=== PATIENT | female | born 1950 | race Caucasian/White ===

== ENCOUNTER 2019-08-25 02:52 | Emergency (ER) | payer MEDICARE, BC ==
[~2019-08-25] VITALS: Ht 165.1 cm; Wt 68.0 kg
[2019-08-25 02:52] VITALS: BP 170/92
[~2019-08-25 02:52] MED LIST: ASPI81TA5 PO; ATEN50TA PO
--- NOTE | 2019-08-25 03:05 | NUR ---
SEEN AND EXAMINED BY DR. DAS
--- NOTE | 2019-08-25 03:12 | NUR ---
DR. DAS AT BEDSIDE FOR LACERATION AND DRAINAGE
[2019-08-25] MEDS ORDERED: SULFAMETH/TRIMETH 800/160 MG 1 UDTAB TABLET ONE (03:25)
[2019-08-25] MEDS ORDERED: SULFAMETH/TRIMETH 800/160 MG 1 UDTAB TABLET PO ONE (03:30)
== END 2019-08-25 03:33 | disposition home or self-care (01) ==
LOC: ER 02:57
DX: L02.511 Cutaneous abscess of right hand (principal); I10 Essential (primary) hypertension; Z60.2 Problems related to living alone; Z79.82 Long term (current) use of aspirin; Z79.899 Other long term (current) drug therapy

== ENCOUNTER 2021-12-02 03:35 | Emergency (ER) | payer MEDICARE, BC ==
[~2021-12-02] VITALS: Ht 165.1 cm; Wt 63.5 kg
--- NOTE | 2021-12-02 04:16 | NUR ---
URINE COLLECTED AND SENT TO LAB
--- NOTE | 2021-12-02 04:16 | NUR ---
PT BIBS C/O LLQ PAIN X3 DAYS. PATIENT ALERT AND ORIENTED X3. AMBULATORY WITH NON LABORED BREATHING IN BED 10 AWAITING MD SÁNCHEZ.
[2021-12-02] MEDS ORDERED: MORPHINE SULFATE INJ 2 MG/ML DISP.SYRIN IV ONE (04:30)
[2021-12-02] MEDS ORDERED: IV NS 0.9% 500 ML BAG IV ONE (04:30)
[2021-12-02] MEDS ORDERED: ONDANSETRON HCL/PF 4 MG/2 ML VIAL IVP ONE (04:30)
--- NOTE | 2021-12-02 04:30 | NUR ---
RAC #20G S/L; PATENT AND INTACT. BLOOD COLLECTED AND GIVEN TO LAB
[2021-12-02 04:47] LABS: BASOPHILS # (AUTO) 0.1 K/uL (0.0-0.2); BASOPHILS % (AUTO) 0.5 % (0.0-2.0); EOSINOPHILS % (AUTO) 0.3 % (0.0-6.0); HEMATOCRIT 45 % (33-45); HEMOGLOBIN 14.7 g/dL (11.5-14.8); LYMPHOCYTES # (AUTO) 1.7 K/uL (0.8-4.8); LYMPHOCYTES % (AUTO) 15.2 % (20.0-44.0); MEAN CORPUSCULAR HGB CONC 32 g/dl (31.0-36.0); MEAN CORPUSCULAR VOLUME 82 fL (82-100); MONOCYTES # (AUTO) 0.6 K/uL (0.1-1.30); NEUTROPHILS # (AUTO) 8.8 K/uL (1.8-8.9); PLATELET COUNT (AUTO) 348 K/uL (150-450); RED BLOOD CELL COUNT(AUTO) 5.52 MIL/uL (4.0-5.2); WHITE BLOOD COUNT (AUTO) 11.1 K/uL (4.3-11.0)
[2021-12-02 04:50] LABS: BILIRUBIN,URINE MODERATE (NEGATIVE); LEUKOCYTE ESTERASE ,URINE NEGATIVE (NEGATIVE); NITRITE, URINE NEGATIVE (NEGATIVE); PH,URINE 5.5 (5.0-8.0); PROTEIN,URINE TRACE mg/dl (NEGATIVE); UGLUCOSE NEGATIVE (NEGATIVE)
--- NOTE | 2021-12-02 04:50 | NUR ---
PT TAKEN TO CT VIA TAYL[facility]
[2021-12-02 04:51] LABS: COLOR,URINE DARK YELLOW (YELLOW)
[2021-12-02 05:07] LABS: CALCIUM, SERUM 10.2 mg/dL (8.5-10.1); CARBON DIOXIDE 24 mmol/L (21-32); CHLORIDE 100 mmol/L (98-107); CREATININE 0.8 mg/dL (0.6-1.3); GLUCOSE 119 mg/dL (74-106); POTASSIUM 3.7 mmol/L (3.5-5.1); SODIUM SERUM 135 mmol/L (136-145); UREA NITROGEN, BLOOD 13 mg/dL (7-18)
[2021-12-02 05:13] LABS: ALANINE AMINOTRANSFERASE 19 U/L (12-78); ALKALINE PHOSPHATASE 106 U/L (46-116); ASPARTATE AMINOTRANSFERASE 14 U/L (15-37); BILIRUBIN,DIRECT 0.2 mg/dL (0.0-0.2); BILIRUBIN,TOTAL 0.7 mg/dL (0.2-1.0); LIPASE 113 U/L (73-393); TOTAL PROTEIN, SERUM 7.5 g/dL (6.4-8.2)
[2021-12-02] MEDS ORDERED: CIPR-262 PO (06:09)
[2021-12-02] MEDS ORDERED: METR500T PO (06:09)
[2021-12-02] MEDS ORDERED: METRONIDAZOLE 500 MG TABLET ONE (06:14)
[2021-12-02] MEDS ORDERED: CIPROFLOXACIN HCL 500 MG TABLET ONE (06:14)
[2021-12-02] MEDS ORDERED: METRONIDAZOLE 500 MG TABLET PO ONE (06:30)
[2021-12-02] MEDS ORDERED: CIPROFLOXACIN HCL 500 MG TABLET PO ONE (06:30)
--- NOTE | 2021-12-02 06:31 | NUR ---
Patient discharged to home in stable condition. rx Written and verbal after care instructions given. Patient verbalizes understanding of instruction. pt ambulatory with a steady gait
[2021-12-02 06:33] VITALS: BP 169/89
[2021-12-02 08:01] LABS: BACTERIA,URINE None seen /HPF (None Seen); MUCUS,URINE Moderate /LPF (None Seen); SQUAMOUS EPITHELIAL CELL,UR Few /HPF (None Seen); WBC,URINE 0-3 /HPF (0-3)
== END 2021-12-02 06:35 | disposition home or self-care (01) ==
LOC: ER 03:41
DX: K52.9 Noninfective gastroenteritis and colitis, unspecified (principal); I10 Essential (primary) hypertension; Z60.2 Problems related to living alone; Z79.899 Other long term (current) drug therapy; Z79.82 Long term (current) use of aspirin
CPT/HCPCS: 36415; 71045-TC; 80048-TC; 80076-TC; 81001; 83690-TC; 84484-TC; 85025-TC; 85730-TC

== ENCOUNTER 2023-04-11 17:49 | Inpatient (IN) | payer MEDICARE, BC ==
[~2023-04-11] VITALS: Ht 167.6 cm; Wt 71.7 kg
[~2023-04-11 17:49] MED LIST changes: +CIPR-262 PO; +DOCU-141 PO; +METR500T PO
[2023-04-11 19:56] LABS: BASOPHILS # (AUTO) 0.1 K/uL (0.0-0.2); BASOPHILS % (AUTO) 0.7 % (0.0-2.0); EOSINOPHILS % (AUTO) 0.4 % (0.0-6.0); HEMATOCRIT 43 % (33-45); LYMPHOCYTES # (AUTO) 2.4 K/uL (0.8-4.8); LYMPHOCYTES % (AUTO) 23.3 % (20.0-44.0); MEAN CORPUSCULAR HEMOGLOBIN 27 PG (26.0-33.0); MEAN CORPUSCULAR HGB CONC 33 g/dl (31.0-36.0); MEAN CORPUSCULAR VOLUME 82 fL (82-100); MONOCYTES # (AUTO) 0.8 K/uL (0.1-1.30); MONOCYTES % (AUTO) 8.1 % (2.0-12.0); NEUTROPHILS % (AUTO) 67.5 % (43.0-81.0); PLATELET COUNT (AUTO) 336 K/uL (150-450); RED BLOOD CELL COUNT(AUTO) 5.21 MIL/uL (4.0-5.2); RED CELL DISTRIBUTION WIDTH 14.6 % (11.5-15.0); WHITE BLOOD COUNT (AUTO) 10.3 K/uL (4.3-11.0)
[2023-04-11 20:22] LABS: APPEARANCE,URINE CLEAR (CLEAR); BILIRUBIN,URINE NEGATIVE (NEGATIVE); BLOOD, URINE NEGATIVE Ery/uL (NEGATIVE); COLOR,URINE YELLOW (YELLOW); KETONES,URINE 1+ mg/dL (NEGATIVE); LEUKOCYTE ESTERASE ,URINE NEGATIVE (NEGATIVE); NITRITE, URINE NEGATIVE (NEGATIVE); PROTEIN,URINE NEGATIVE (NEGATIVE); UGLUCOSE NEGATIVE (NEGATIVE); UROBILINOGEN,URINE 0.2 EU/dL (0.2)
[2023-04-11 20:25] LABS: CALCIUM, SERUM 9.9 mg/dL (8.5-10.1); CARBON DIOXIDE 23 mmol/L (21-32); CHLORIDE 104 mmol/L (98-107); CREATININE 0.8 mg/dL (0.6-1.3); GLUCOSE 111 mg/dL (74-106); POTASSIUM 3.8 mmol/L (3.5-5.1); SODIUM SERUM 140 mmol/L (136-145); UREA NITROGEN, BLOOD 9 mg/dL (7-18)
[2023-04-11 20:31] LABS: ALANINE AMINOTRANSFERASE 26 U/L (12-78); ALBUMIN 4.3 g/dL (3.4-5.0); ALKALINE PHOSPHATASE 84 U/L (46-116); ASPARTATE AMINOTRANSFERASE 14 U/L (15-37); BILIRUBIN,DIRECT 0.2 mg/dL (0.0-0.2); BILIRUBIN,TOTAL 0.7 mg/dL (0.2-1.0); TOTAL PROTEIN, SERUM 7.1 g/dL (6.4-8.2)
[2023-04-11 20:32] LABS: ACETAMINOPHEN <10 ug/ml (10-30); ALCOHOL, BLOOD < 3 mg/dL (0-10); SALICYLATE < 2.3 mg/dL (2.8-20.0)
[2023-04-11 20:36] LABS: AMPHETAMINE, URINE NEGATIVE (NEGATIVE); BARBITURATE, URINE NEGATIVE (NEGATIVE); CANNABINOID, URINE NEGATIVE (NEGATIVE); COCCAINE, URINE NEGATIVE (NEGATIVE); OPIATE, URINE NEGATIVE (NEGATIVE); PHENCYCLIDINE SCREEN,URINE NEGATIVE (NEGATIVE)
[2023-04-11 20:37] LABS: BENZODIAZEPINE, URINE POSITIVE (NEGATIVE)
[2023-04-11] MEDS ORDERED: OLANZAPINE 5 MG TABLET PO ONE (23:00)
[2023-04-11] MEDS ORDERED: OLANZAPINE 5 MG TABLET ONE (23:08)
[2023-04-12 01:10] VITALS: BP 153/86; TEMP 97.7; O2SAT 97
[2023-04-12] MEDS ORDERED: ZOLPIDEM TARTRATE 5 MG TABLET PO PRN (01:30)
[2023-04-12] MEDS ORDERED: LORAZEPAM 0.5 MG TABLET PO PRN (01:30)
[2023-04-12] MEDS ORDERED: BLOOD SUGAR DIAGNOSTIC 1 EACH STRIP IN ONE (01:30)
[2023-04-12 07:21] LABS: CREATININE 0.7 mg/dL (0.6-1.3)
[2023-04-12 07:28] LABS: CHOLESTEROL 122 mg/dL (<200); HDL CHOLESTEROL 61 mg/dL (40-60); LDL 45 mg/dL (0-99); TRIGLYCERIDES 53 mg/dL (30-150)
[2023-04-12 08:00] VITALS: BP 144/72; TEMP 97.8; O2SAT 98
[2023-04-12] MEDS: ATENOLOL 50 MG TABLET PO SCH (08:12)
[2023-04-12] MEDS: ASPIRIN EC 81 MG TABLET.DR PO SCH (08:12)
[2023-04-12] MEDS ORDERED: ALPR0.5T8 PO (10:16)
[2023-04-12] MEDS ORDERED: ESCI5TAB PO (10:16)
[2023-04-12] MEDS ORDERED: POLY17PO4 PO (10:16)
[2023-04-12] MEDS ORDERED: LISI-768 PO (10:16)
[2023-04-12] MEDS ORDERED: CHOL100043 PO (10:16)
[2023-04-12] MEDS ORDERED: ATOR10TA PO (10:16)
[2023-04-12] MEDS ORDERED: TEMAZEPAM 7.5 MG CAPSULE PO PRN (11:00)
[2023-04-12] MEDS: ESCITALOPRAM OXALATE (10 MG) 10 MG TABLET PO SCH (12:12)
[2023-04-12] MEDS: LISINOPRIL (5MG) 5 MG TABLET PO SCH (12:13)
[2023-04-12] MEDS: ATORVASTATIN 10 MG TABLET PO SCH (12:13)
[2023-04-12] MEDS: MAGNESIUM HYDROXIDE 30 ML UDC PO PRN (14:26)
[2023-04-12] MEDS: DOCUSATE SODIUM 100 MG CAPSULE PO PRN (15:33)
[2023-04-12 16:00] VITALS: BP 152/76; TEMP 97.8; O2SAT 98
[2023-04-12] MEDS: hydrOXYzine PAMOATE 25 MG CAPSULE PO PRN (16:35)
[2023-04-12] MEDS: ACETAMINOPHEN 325 MG TABLET PO PRN (18:38)
[2023-04-12 20:56] VITALS: BP 144/49; TEMP 97.6; O2SAT 97
[2023-04-12] MEDS: QUETIAPINE FUMARATE 100 MG TABLET PO SCH (21:58)
[2023-04-13] MEDS: hydrOXYzine PAMOATE 25 MG CAPSULE PO PRN (01:00)
[2023-04-13 08:00] VITALS: BP 158/78; TEMP 97.8; O2SAT 98
[2023-04-13] MEDS: POLYETHYLENE GLYCOL 3350 17 GM POWD.PACK PO SCH ×2 (08:49→08:59)
[2023-04-13] MEDS: ASPIRIN EC 81 MG TABLET.DR PO SCH (08:50)
[2023-04-13] MEDS: LISINOPRIL (5MG) 5 MG TABLET PO SCH (08:50)
[2023-04-13] MEDS: ATORVASTATIN 10 MG TABLET PO SCH (08:50)
[2023-04-13] MEDS: ATENOLOL 50 MG TABLET PO SCH (08:50)
[2023-04-13] MEDS: ESCITALOPRAM OXALATE (10 MG) 10 MG TABLET PO SCH (08:50)
[2023-04-13] MEDS: CHOLECALCIFEROL (VITAMIN D 3) 400 UNIT TABLET PO SCH (08:50)
[2023-04-13 16:00] VITALS: BP 144/68; TEMP 98; O2SAT 100
[2023-04-13 20:00] VITALS: BP 141/73; TEMP 98.2; O2SAT 96
[2023-04-13] MEDS: QUETIAPINE FUMARATE 100 MG TABLET PO SCH (21:11)
[2023-04-14] MEDS: TEMAZEPAM 15 MG CAPSULE PO PRN (01:58)
[2023-04-14 08:00] VITALS: BP 161/78; TEMP 98.6; O2SAT 98
[2023-04-14] MEDS: ATENOLOL 50 MG TABLET PO SCH (09:00)
[2023-04-14] MEDS: ASPIRIN EC 81 MG TABLET.DR PO SCH (09:00)
[2023-04-14] MEDS: LISINOPRIL (5MG) 5 MG TABLET PO SCH (09:00)
[2023-04-14] MEDS: POLYETHYLENE GLYCOL 3350 17 GM POWD.PACK PO SCH (09:00)
[2023-04-14] MEDS: ATORVASTATIN 10 MG TABLET PO SCH (09:00)
[2023-04-14] MEDS: ESCITALOPRAM OXALATE (10 MG) 10 MG TABLET PO SCH (09:00)
[2023-04-14] MEDS: CHOLECALCIFEROL (VITAMIN D 3) 400 UNIT TABLET PO SCH (09:00)
[2023-04-14] MEDS: MAGNESIUM HYDROXIDE 30 ML UDC PO PRN (11:18)
[2023-04-14] MEDS: DOCUSATE SODIUM 100 MG CAPSULE PO PRN (14:06)
[2023-04-14 16:00] VITALS: BP 124/67; TEMP 97.9; O2SAT 98
[2023-04-14 20:00] VITALS: BP 135/79; TEMP 98.3; O2SAT 96
[2023-04-14] MEDS ORDERED: MIRTAZAPINE 15 MG TABLET PO SCH (22:00)
[2023-04-15] MEDS: TEMAZEPAM 15 MG CAPSULE PO PRN (01:27)
[2023-04-15 08:00] VITALS: BP 140/70; TEMP 98; O2SAT 100
[2023-04-15] MEDS: ESCITALOPRAM OXALATE (10 MG) 10 MG TABLET PO SCH (08:49)
[2023-04-15] MEDS: CHOLECALCIFEROL (VITAMIN D 3) 400 UNIT TABLET PO SCH (08:49)
[2023-04-15] MEDS: ASPIRIN EC 81 MG TABLET.DR PO SCH (08:49)
[2023-04-15] MEDS: ATORVASTATIN 10 MG TABLET PO SCH (08:50)
[2023-04-15] MEDS: ATENOLOL 50 MG TABLET PO SCH (08:50)
[2023-04-15] MEDS: LISINOPRIL (5MG) 5 MG TABLET PO SCH (08:50)
[2023-04-15] MEDS: POLYETHYLENE GLYCOL 3350 17 GM POWD.PACK PO SCH (09:00)
[2023-04-15 16:00] VITALS: BP 127/80; TEMP 97.4; O2SAT 98
[2023-04-15 20:00] VITALS: BP 146/70; TEMP 98.2; O2SAT 95
[2023-04-15] MEDS: MIRTAZAPINE 15 MG TABLET PO SCH (21:09)
[2023-04-16] MEDS: TEMAZEPAM 15 MG CAPSULE PO PRN (02:03)
[2023-04-16 08:00] VITALS: BP 129/66; TEMP 97.6; O2SAT 98
[2023-04-16] MEDS: POLYETHYLENE GLYCOL 3350 17 GM POWD.PACK PO SCH (09:00)
[2023-04-16] MEDS: CHOLECALCIFEROL (VITAMIN D 3) 400 UNIT TABLET PO SCH (09:44)
[2023-04-16] MEDS: ATORVASTATIN 10 MG TABLET PO SCH (09:44)
[2023-04-16] MEDS: ESCITALOPRAM OXALATE (10 MG) 10 MG TABLET PO SCH (09:44)
[2023-04-16] MEDS: DOCUSATE SODIUM 100 MG CAPSULE PO PRN ×2 (09:45→21:49)
[2023-04-16] MEDS: ASPIRIN EC 81 MG TABLET.DR PO SCH (09:45)
[2023-04-16] MEDS: ATENOLOL 50 MG TABLET PO SCH (09:47)
[2023-04-16] MEDS: LISINOPRIL (5MG) 5 MG TABLET PO SCH (09:47)
[2023-04-16 16:00] VITALS: BP 114/74; TEMP 97.9; O2SAT 99
[2023-04-16 20:00] VITALS: BP 119/67; TEMP 98.2; O2SAT 98
[2023-04-16] MEDS: MIRTAZAPINE 15 MG TABLET PO SCH (21:38)
[2023-04-17] MEDS: TEMAZEPAM 15 MG CAPSULE PO PRN ×2 (01:24→21:28)
[2023-04-17 08:00] VITALS: BP 130/63; TEMP 98.3; O2SAT 98
[2023-04-17] MEDS ORDERED: MAGNESIUM HYDROXIDE 30 ML UDC PO PRN (09:00)
[2023-04-17] MEDS: POLYETHYLENE GLYCOL 3350 17 GM POWD.PACK PO SCH (09:21)
[2023-04-17] MEDS: ATORVASTATIN 10 MG TABLET PO SCH (09:22)
[2023-04-17] MEDS: ASPIRIN EC 81 MG TABLET.DR PO SCH (09:22)
[2023-04-17] MEDS: LISINOPRIL (5MG) 5 MG TABLET PO SCH (09:22)
[2023-04-17] MEDS: CHOLECALCIFEROL (VITAMIN D 3) 400 UNIT TABLET PO SCH (09:22)
[2023-04-17] MEDS: ESCITALOPRAM OXALATE (10 MG) 10 MG TABLET PO SCH (09:22)
[2023-04-17] MEDS: DOCUSATE SODIUM 100 MG CAPSULE PO SCH ×2 (09:22→16:16)
[2023-04-17] MEDS: ATENOLOL 50 MG TABLET PO SCH (09:22)
[2023-04-17] MEDS: ARIPIPRAZOLE 2 MG TABLET PO SCH (09:45)
[2023-04-17] MEDS: hydrOXYzine PAMOATE 25 MG CAPSULE PO PRN (14:21)
[2023-04-17 16:00] VITALS: BP 121/72; TEMP 97.9; O2SAT 97
[2023-04-17 20:35] VITALS: BP 125/62; TEMP 98.2; O2SAT 97
[2023-04-17] MEDS: MIRTAZAPINE 15 MG TABLET PO SCH (21:27)
[2023-04-18] MEDS: TEMAZEPAM 15 MG CAPSULE PO PRN (02:14)
[2023-04-18 08:00] VITALS: BP 138/72; TEMP 98; O2SAT 97
[2023-04-18] MEDS: CHOLECALCIFEROL (VITAMIN D 3) 400 UNIT TABLET PO SCH (08:34)
[2023-04-18] MEDS: POLYETHYLENE GLYCOL 3350 17 GM POWD.PACK PO SCH (08:34)
[2023-04-18] MEDS: LISINOPRIL (5MG) 5 MG TABLET PO SCH (08:35)
[2023-04-18] MEDS: ASPIRIN EC 81 MG TABLET.DR PO SCH (08:35)
[2023-04-18] MEDS: DOCUSATE SODIUM 100 MG CAPSULE PO SCH ×2 (08:35→16:20)
[2023-04-18] MEDS: ESCITALOPRAM OXALATE (10 MG) 10 MG TABLET PO SCH (08:35)
[2023-04-18] MEDS: ATORVASTATIN 10 MG TABLET PO SCH (08:35)
[2023-04-18] MEDS: ATENOLOL 50 MG TABLET PO SCH (08:35)
[2023-04-18] MEDS: ARIPIPRAZOLE 2 MG TABLET PO SCH (08:36)
[2023-04-18 16:00] VITALS: BP 117/67; TEMP 97.7; O2SAT 98
[2023-04-18 21:04] VITALS: BP 136/69; TEMP 98.6; O2SAT 98
[2023-04-18] MEDS: MIRTAZAPINE 15 MG TABLET PO SCH (21:11)
[2023-04-19] MEDS: TEMAZEPAM 15 MG CAPSULE PO PRN (02:10)
[2023-04-19] MEDS: ACETAMINOPHEN 325 MG TABLET PO PRN (06:26)
[2023-04-19 08:00] VITALS: BP 123/66; TEMP 98.1; O2SAT 98
[2023-04-19] MEDS: CHOLECALCIFEROL (VITAMIN D 3) 400 UNIT TABLET PO SCH (09:24)
[2023-04-19] MEDS: POLYETHYLENE GLYCOL 3350 17 GM POWD.PACK PO SCH (09:24)
[2023-04-19] MEDS: ASPIRIN EC 81 MG TABLET.DR PO SCH (09:24)
[2023-04-19] MEDS: ESCITALOPRAM OXALATE (10 MG) 10 MG TABLET PO SCH (09:24)
[2023-04-19] MEDS: DOCUSATE SODIUM 100 MG CAPSULE PO SCH ×2 (09:24→16:41)
[2023-04-19] MEDS: ATORVASTATIN 10 MG TABLET PO SCH (09:24)
[2023-04-19] MEDS: LISINOPRIL (5MG) 5 MG TABLET PO SCH (09:24)
[2023-04-19] MEDS: ATENOLOL 50 MG TABLET PO SCH (09:25)
[2023-04-19 20:10] VITALS: BP 140/75; TEMP 98; O2SAT 98
[2023-04-19] MEDS: MIRTAZAPINE 15 MG TABLET PO SCH (21:56)
[2023-04-20] MEDS: TEMAZEPAM 15 MG CAPSULE PO PRN (02:01)
[2023-04-20 08:00] VITALS: BP 153/83; TEMP 97.8; O2SAT 99
[2023-04-20] MEDS: ASPIRIN EC 81 MG TABLET.DR PO SCH (09:05)
[2023-04-20] MEDS: DOCUSATE SODIUM 100 MG CAPSULE PO SCH ×2 (09:05→16:17)
[2023-04-20] MEDS: ESCITALOPRAM OXALATE (10 MG) 10 MG TABLET PO SCH (09:06)
[2023-04-20] MEDS: CHOLECALCIFEROL (VITAMIN D 3) 400 UNIT TABLET PO SCH (09:06)
[2023-04-20] MEDS: ATORVASTATIN 10 MG TABLET PO SCH (09:06)
[2023-04-20] MEDS: ATENOLOL 50 MG TABLET PO SCH (09:06)
[2023-04-20] MEDS: LISINOPRIL (5MG) 5 MG TABLET PO SCH (09:06)
[2023-04-20] MEDS: POLYETHYLENE GLYCOL 3350 17 GM POWD.PACK PO SCH (09:08)
[2023-04-20 16:00] VITALS: BP 131/69; TEMP 99.1; O2SAT 97
[2023-04-20 20:00] VITALS: BP 148/75; TEMP 98; O2SAT 97
[2023-04-20] MEDS: MIRTAZAPINE 15 MG TABLET PO SCH (21:01)
[2023-04-20] MEDS: QUETIAPINE FUMARATE 25 MG TABLET PO SCH (21:58)
[2023-04-21] MEDS: TEMAZEPAM 15 MG CAPSULE PO PRN (02:13)
[2023-04-21 08:00] VITALS: BP 138/74; TEMP 98.3; O2SAT 98
[2023-04-21] MEDS: DOCUSATE SODIUM 100 MG CAPSULE PO SCH ×2 (08:49→16:30)
[2023-04-21] MEDS: ESCITALOPRAM OXALATE (10 MG) 10 MG TABLET PO SCH (08:50)
[2023-04-21] MEDS: ASPIRIN EC 81 MG TABLET.DR PO SCH (08:50)
[2023-04-21] MEDS: ATENOLOL 50 MG TABLET PO SCH (08:50)
[2023-04-21] MEDS: ATORVASTATIN 10 MG TABLET PO SCH (08:50)
[2023-04-21] MEDS: LISINOPRIL (5MG) 5 MG TABLET PO SCH (08:50)
[2023-04-21] MEDS: CHOLECALCIFEROL (VITAMIN D 3) 400 UNIT TABLET PO SCH (08:50)
[2023-04-21] MEDS: POLYETHYLENE GLYCOL 3350 17 GM POWD.PACK PO SCH (08:55)
[2023-04-21 16:00] VITALS: BP 115/67; TEMP 98.7; O2SAT 97
[2023-04-21 20:00] VITALS: BP 132/71; TEMP 98.6
[2023-04-21] MEDS: MIRTAZAPINE 15 MG TABLET PO SCH (21:01)
[2023-04-21] MEDS: QUETIAPINE FUMARATE 25 MG TABLET PO SCH (21:59)
[2023-04-22] MEDS: TEMAZEPAM 15 MG CAPSULE PO PRN (02:05)
[2023-04-22 08:00] VITALS: BP 131/82; TEMP 98.2; O2SAT 98
[2023-04-22] MEDS: ESCITALOPRAM OXALATE (10 MG) 10 MG TABLET PO SCH (08:56)
[2023-04-22] MEDS: POLYETHYLENE GLYCOL 3350 17 GM POWD.PACK PO SCH (08:56)
[2023-04-22] MEDS: ASPIRIN EC 81 MG TABLET.DR PO SCH (08:56)
[2023-04-22] MEDS: CHOLECALCIFEROL (VITAMIN D 3) 400 UNIT TABLET PO SCH (08:56)
[2023-04-22] MEDS: ATORVASTATIN 10 MG TABLET PO SCH (08:56)
[2023-04-22] MEDS: DOCUSATE SODIUM 100 MG CAPSULE PO SCH ×2 (08:56→17:20)
[2023-04-22] MEDS: LISINOPRIL (5MG) 5 MG TABLET PO SCH (08:57)
[2023-04-22] MEDS: ATENOLOL 50 MG TABLET PO SCH (08:57)
[2023-04-22] MEDS: hydrOXYzine PAMOATE 25 MG CAPSULE PO PRN (14:11)
[2023-04-22 16:06] VITALS: BP 121/69; TEMP 98; O2SAT 99
[2023-04-22] MEDS: MIRTAZAPINE 15 MG TABLET PO SCH (21:05)
[2023-04-22] MEDS: QUETIAPINE FUMARATE 25 MG TABLET PO SCH (22:16)
[2023-04-22 23:16] VITALS: BP 150/74; TEMP 98
[2023-04-23] MEDS: TEMAZEPAM 15 MG CAPSULE PO PRN (01:58)
[2023-04-23 08:00] VITALS: BP 147/73; TEMP 97.8; O2SAT 100
[2023-04-23] MEDS: DOCUSATE SODIUM 100 MG CAPSULE PO SCH ×2 (08:23→17:05)
[2023-04-23] MEDS: POLYETHYLENE GLYCOL 3350 17 GM POWD.PACK PO SCH (08:23)
[2023-04-23] MEDS: ESCITALOPRAM OXALATE (10 MG) 10 MG TABLET PO SCH (08:24)
[2023-04-23] MEDS: ASPIRIN EC 81 MG TABLET.DR PO SCH (08:24)
[2023-04-23] MEDS: ATORVASTATIN 10 MG TABLET PO SCH (08:24)
[2023-04-23] MEDS: LISINOPRIL (5MG) 5 MG TABLET PO SCH (08:24)
[2023-04-23] MEDS: CHOLECALCIFEROL (VITAMIN D 3) 400 UNIT TABLET PO SCH (08:25)
[2023-04-23] MEDS: ATENOLOL 50 MG TABLET PO SCH (08:25)
[2023-04-23] MEDS: ACETAMINOPHEN 325 MG TABLET PO PRN ×2 (10:43→18:34)
[2023-04-23 15:53] VITALS: BP 125/75; TEMP 98; O2SAT 98
[2023-04-23 20:00] VITALS: BP 117/70; TEMP 97.2; O2SAT 98
[2023-04-23] MEDS: MIRTAZAPINE 15 MG TABLET PO SCH (21:05)
[2023-04-23] MEDS: QUETIAPINE FUMARATE 25 MG TABLET PO SCH (21:55)
[2023-04-24] MEDS: TEMAZEPAM 15 MG CAPSULE PO PRN (02:09)
[2023-04-24 08:00] VITALS: BP 138/80; TEMP 98.2; O2SAT 95
[2023-04-24 08:09] VITALS: BP 138/80; TEMP 98.2
[2023-04-24] MEDS: CHOLECALCIFEROL (VITAMIN D 3) 400 UNIT TABLET PO SCH (08:44)
[2023-04-24] MEDS: ATORVASTATIN 10 MG TABLET PO SCH (08:44)
[2023-04-24] MEDS: ASPIRIN EC 81 MG TABLET.DR PO SCH (08:44)
[2023-04-24] MEDS: LISINOPRIL (5MG) 5 MG TABLET PO SCH (08:44)
[2023-04-24] MEDS: ATENOLOL 50 MG TABLET PO SCH (08:45)
[2023-04-24] MEDS: ESCITALOPRAM OXALATE (10 MG) 10 MG TABLET PO SCH (08:45)
[2023-04-24] MEDS: DOCUSATE SODIUM 100 MG CAPSULE PO SCH ×2 (08:45→16:58)
[2023-04-24] MEDS: MAG HYDROX/AL HYDROX/SIMETH 30 ML UDC PO PRN ×2 (15:32→19:57)
[2023-04-24 16:01] VITALS: BP 130/73; TEMP 97.8; O2SAT 98
[2023-04-24 20:00] VITALS: BP 120/79; TEMP 98.1; O2SAT 96
[2023-04-24] MEDS: MIRTAZAPINE 15 MG TABLET PO SCH (21:05)
[2023-04-24] MEDS: QUETIAPINE FUMARATE 25 MG TABLET PO SCH (21:05)
[2023-04-25] MEDS: diphenhydrAMINE HCL 50 MG CAPSULE PO PRN (02:13)
[2023-04-25] MEDS: DOCUSATE SODIUM 100 MG CAPSULE PO SCH ×2 (09:00→17:20)
[2023-04-25] MEDS: ATORVASTATIN 10 MG TABLET PO SCH (09:00)
[2023-04-25] MEDS: ASPIRIN EC 81 MG TABLET.DR PO SCH (09:00)
[2023-04-25] MEDS: ESCITALOPRAM OXALATE (10 MG) 10 MG TABLET PO SCH (09:00)
[2023-04-25] MEDS: LISINOPRIL (5MG) 5 MG TABLET PO SCH (09:00)
[2023-04-25] MEDS: CHOLECALCIFEROL (VITAMIN D 3) 400 UNIT TABLET PO SCH (09:01)
[2023-04-25] MEDS: ATENOLOL 50 MG TABLET PO SCH (09:03)
[2023-04-25] MEDS: hydrOXYzine PAMOATE 25 MG CAPSULE PO PRN (11:01)
[2023-04-25 16:00] VITALS: BP 108/69; TEMP 99.3; O2SAT 96
[2023-04-25 19:30] VITALS: BP 120/79; TEMP 96; O2SAT 96
[2023-04-25] MEDS: MAG HYDROX/AL HYDROX/SIMETH 30 ML UDC PO PRN (20:24)
[2023-04-25 20:28] VITALS: BP 127/68; TEMP 98.1; O2SAT 96
[2023-04-25] MEDS: MIRTAZAPINE 15 MG TABLET PO SCH (21:02)
[2023-04-25] MEDS: QUETIAPINE FUMARATE 25 MG TABLET PO SCH (21:03)
[2023-04-26] MEDS: diphenhydrAMINE HCL 50 MG CAPSULE PO PRN (01:56)
[2023-04-26] MEDS: hydrOXYzine PAMOATE 25 MG CAPSULE PO PRN ×2 (03:38→14:05)
[2023-04-26] MEDS: ASPIRIN EC 81 MG TABLET.DR PO SCH (08:25)
[2023-04-26] MEDS: DOCUSATE SODIUM 100 MG CAPSULE PO SCH ×2 (08:25→16:58)
[2023-04-26] MEDS: CHOLECALCIFEROL (VITAMIN D 3) 400 UNIT TABLET PO SCH (08:25)
[2023-04-26] MEDS: ATORVASTATIN 10 MG TABLET PO SCH (08:25)
[2023-04-26] MEDS: LISINOPRIL (5MG) 5 MG TABLET PO SCH (08:26)
[2023-04-26] MEDS: ESCITALOPRAM OXALATE (10 MG) 10 MG TABLET PO SCH ×2 (08:27→10:45)
[2023-04-26] MEDS: ATENOLOL 50 MG TABLET PO SCH (08:27)
[2023-04-26 09:10] VITALS: BP 138/81; TEMP 98.1; O2SAT 98
[2023-04-26 15:24] VITALS: BP 138/63; TEMP 98.3
[2023-04-26] MEDS ORDERED: hydrOXYzine PAMOATE 25 MG CAPSULE PO ONE (16:00)
[2023-04-26] MEDS: MAG HYDROX/AL HYDROX/SIMETH 30 ML UDC PO PRN (19:51)
[2023-04-26 19:58] VITALS: BP 155/70; TEMP 98.2; O2SAT 97
[2023-04-26] MEDS ORDERED: QUETIAPINE FUMARATE 25 MG TABLET PO SCH (22:00)
[2023-04-27 08:00] VITALS: BP 138/78; TEMP 97.9; O2SAT 96
[2023-04-27] MEDS: DOCUSATE SODIUM 100 MG CAPSULE PO SCH (08:32)
[2023-04-27] MEDS: CHOLECALCIFEROL (VITAMIN D 3) 400 UNIT TABLET PO SCH (08:32)
[2023-04-27] MEDS: ASPIRIN EC 81 MG TABLET.DR PO SCH (08:32)
[2023-04-27 08:33] VITALS: BP 138/78
[2023-04-27] MEDS: ATENOLOL 50 MG TABLET PO SCH (08:33)
[2023-04-27] MEDS: ATORVASTATIN 10 MG TABLET PO SCH (08:33)
[2023-04-27] MEDS: LISINOPRIL (5MG) 5 MG TABLET PO SCH (08:33)
[2023-04-27] MEDS: ESCITALOPRAM OXALATE (10 MG) 10 MG TABLET PO SCH ×2 (08:34→09:44)
[2023-04-27] MEDS ORDERED: ESCITALOPRAM OXALATE (10 MG) 10 MG TABLET PO SCH (09:00)
[2023-04-27] MEDS: MAG HYDROX/AL HYDROX/SIMETH 30 ML UDC PO PRN (10:50)
== END 2023-04-27 12:50 | disposition home or self-care (01) | DRG 885 ==
LOC: ER 17:59 → GPS 04-12 00:30
PROVIDERS: ADMIT Psychiatry & Neurology Psychiatry
DX: F33.3 Major depressive disorder, recurrent, severe with psychotic symptoms (principal); R45.851 Suicidal ideations; F29 Unspecified psychosis not due to a substance or known physiological condition; E78.5 Hyperlipidemia, unspecified; I10 Essential (primary) hypertension; F41.9 Anxiety disorder, unspecified; F41.0 Panic disorder [episodic paroxysmal anxiety]; F41.1 Generalized anxiety disorder; F60.9 Personality disorder, unspecified; Z79.899 Other long term (current) drug therapy; Z79.82 Long term (current) use of aspirin; Z73.6 Limitation of activities due to disability
CPT/HCPCS: 36415; 74018; 80048-TC; 80061-TC; 80076-TC; 82565-TC; 82962-TC; 85025-TC; 87081-TC; G0480; Q0163; Q0177

== ENCOUNTER 2023-06-22 11:12 | Inpatient (IN) | payer MEDICARE, BC ==
[~2023-06-22] VITALS: Ht 152.4 cm; Wt 59.0 kg
[~2023-06-22 11:12] MED LIST changes: +ALPR0.5T8 PO; -ASPI81TA5 PO; +ATOR10TA PO; +CHOL100043 PO; -CIPR-262 PO; -DOCU-141 PO; +ESCI5TAB PO; +LISI-768 PO; -METR500T PO; +POLY17PO4 PO
[2023-06-22] MEDS ORDERED: LORA-258 PO (11:27)
[2023-06-22] MEDS ORDERED: TEMA15CA PO (11:27)
[2023-06-22] MEDS ORDERED: MIRT-90 PO (11:27)
[2023-06-22] MEDS ORDERED: LAMO25TA10 PO (11:27)
[2023-06-22] MEDS ORDERED: SENN-261 PO (11:41)
[2023-06-22] MEDS ORDERED: DOCU-141 PO (11:41)
[2023-06-22] MEDS ORDERED: MAG HYDROX/AL HYDROX/SIMETH 30 ML UDC PO PRN (12:00)
[2023-06-22] MEDS ORDERED: MAGNESIUM HYDROXIDE 30 ML UDC PO PRN (12:00)
[2023-06-22] MEDS ORDERED: ZOLPIDEM TARTRATE 5 MG TABLET PO PRN (12:00)
[2023-06-22] MEDS ORDERED: ACETAMINOPHEN 325 MG TABLET PO PRN (12:00)
[2023-06-22] MEDS ORDERED: BLOOD SUGAR DIAGNOSTIC 1 EACH STRIP IN ONE (12:00)
[2023-06-22 16:00] VITALS: BP 132/64; TEMP 98.8; O2SAT 100
[2023-06-22] MEDS: DOCUSATE SODIUM 100 MG CAPSULE PO SCH (17:12)
[2023-06-22] MEDS: SENNOSIDES 8.6 MG TABLET PO SCH (17:12)
[2023-06-22] MEDS ORDERED: TEMAZEPAM 15 MG CAPSULE PO ONE (23:00)
[2023-06-23 08:00] VITALS: BP 152/78; TEMP 98.6; O2SAT 98
[2023-06-23 08:01] LABS: CHOLESTEROL 155 mg/dL (<200); HDL CHOLESTEROL 65 mg/dL (40-60); LDL 71 mg/dL (0-99); TRIGLYCERIDES 75 mg/dL (30-150)
[2023-06-23 08:04] LABS: ALBUMIN 3.5 g/dL (3.4-5.0); BILIRUBIN,TOTAL 0.4 mg/dL (0.2-1.0); CALCIUM, SERUM 9.3 mg/dL (8.5-10.1); CREATININE 0.6 mg/dL (0.6-1.3); TOTAL PROTEIN, SERUM 6.4 g/dL (6.4-8.2)
[2023-06-23] MEDS: DOCUSATE SODIUM 100 MG CAPSULE PO SCH ×2 (08:14→16:11)
[2023-06-23] MEDS: POLYETHYLENE GLYCOL 3350 17 GM POWD.PACK PO SCH ×2 (08:14→08:39)
[2023-06-23] MEDS: SENNOSIDES 8.6 MG TABLET PO SCH ×2 (08:14→16:11)
[2023-06-23] MEDS: LISINOPRIL (5MG) 5 MG TABLET PO SCH (08:15)
[2023-06-23] MEDS: CHOLECALCIFEROL 1,000 UNIT TABLET (VIT D3) PO SCH (08:15)
[2023-06-23] MEDS: ATENOLOL 50 MG TABLET PO SCH (08:15)
[2023-06-23] MEDS: ATORVASTATIN 10 MG TABLET PO SCH (08:15)
[2023-06-23] MEDS: LamoTRIgine 25 MG TABLET PO SCH (10:37)
[2023-06-23] MEDS: ESCITALOPRAM OXALATE (10 MG) 10 MG TABLET PO SCH (10:37)
[2023-06-23 16:00] VITALS: BP 130/71; TEMP 98.8; O2SAT 99
[2023-06-23] MEDS: LORAZEPAM 0.5 MG TABLET PO PRN (17:50)
[2023-06-23] MEDS: MIRTAZAPINE 15 MG TABLET PO SCH (21:38)
[2023-06-23] MEDS: TEMAZEPAM 15 MG CAPSULE PO PRN (22:46)
[2023-06-24 08:00] VITALS: BP 140/79; TEMP 98; O2SAT 99
[2023-06-24] MEDS: POLYETHYLENE GLYCOL 3350 17 GM POWD.PACK PO SCH (09:34)
[2023-06-24] MEDS: LamoTRIgine 25 MG TABLET PO SCH (09:34)
[2023-06-24] MEDS: CHOLECALCIFEROL 1,000 UNIT TABLET (VIT D3) PO SCH (09:34)
[2023-06-24] MEDS: ATORVASTATIN 10 MG TABLET PO SCH (09:34)
[2023-06-24] MEDS: DOCUSATE SODIUM 100 MG CAPSULE PO SCH ×2 (09:34→16:35)
[2023-06-24] MEDS: ESCITALOPRAM OXALATE (10 MG) 10 MG TABLET PO SCH (09:34)
[2023-06-24] MEDS: ATENOLOL 50 MG TABLET PO SCH (09:35)
[2023-06-24] MEDS: LISINOPRIL (5MG) 5 MG TABLET PO SCH (09:35)
[2023-06-24] MEDS: SENNOSIDES 8.6 MG TABLET PO SCH ×2 (09:38→16:35)
[2023-06-24 16:00] VITALS: BP 103/72; TEMP 99; O2SAT 99
[2023-06-24] MEDS: MIRTAZAPINE 15 MG TABLET PO SCH (21:09)
[2023-06-24] MEDS: TEMAZEPAM 15 MG CAPSULE PO PRN (21:48)
[2023-06-25] MEDS: LORAZEPAM 0.5 MG TABLET PO PRN (04:11)
[2023-06-25] MEDS: ATENOLOL 50 MG TABLET PO SCH ×2 (08:36→10:15)
[2023-06-25] MEDS: LISINOPRIL (5MG) 5 MG TABLET PO SCH ×2 (08:36→10:16)
[2023-06-25] MEDS: POLYETHYLENE GLYCOL 3350 17 GM POWD.PACK PO SCH (08:39)
[2023-06-25] MEDS: ESCITALOPRAM OXALATE (10 MG) 10 MG TABLET PO SCH (08:39)
[2023-06-25] MEDS: SENNOSIDES 8.6 MG TABLET PO SCH ×3 (08:39→17:15)
[2023-06-25] MEDS: LamoTRIgine 25 MG TABLET PO SCH (08:39)
[2023-06-25] MEDS: CHOLECALCIFEROL 1,000 UNIT TABLET (VIT D3) PO SCH (08:39)
[2023-06-25] MEDS: ATORVASTATIN 10 MG TABLET PO SCH (08:39)
[2023-06-25] MEDS: DOCUSATE SODIUM 100 MG CAPSULE PO SCH ×3 (08:40→17:15)
[2023-06-25 16:00] VITALS: BP 120/72; TEMP 98.8; O2SAT 96
[2023-06-25] MEDS: MIRTAZAPINE 15 MG TABLET PO SCH (21:22)
[2023-06-25] MEDS: TEMAZEPAM 15 MG CAPSULE PO PRN (21:59)
[2023-06-26] MEDS: LORAZEPAM 0.5 MG TABLET PO PRN (04:39)
[2023-06-26 08:00] VITALS: BP 135/69; TEMP 97.9; O2SAT 97
[2023-06-26] MEDS: ATORVASTATIN 10 MG TABLET PO SCH (08:52)
[2023-06-26] MEDS: SENNOSIDES 8.6 MG TABLET PO SCH (08:52)
[2023-06-26] MEDS: POLYETHYLENE GLYCOL 3350 17 GM POWD.PACK PO SCH (08:52)
[2023-06-26] MEDS: CHOLECALCIFEROL 1,000 UNIT TABLET (VIT D3) PO SCH (08:52)
[2023-06-26] MEDS: DOCUSATE SODIUM 100 MG CAPSULE PO SCH (08:52)
[2023-06-26] MEDS: LISINOPRIL (5MG) 5 MG TABLET PO SCH (08:53)
[2023-06-26] MEDS: LamoTRIgine 25 MG TABLET PO SCH (08:53)
[2023-06-26] MEDS: ESCITALOPRAM OXALATE (10 MG) 10 MG TABLET PO SCH (08:53)
[2023-06-26 08:54] VITALS: BP 135/69
[2023-06-26] MEDS: ATENOLOL 50 MG TABLET PO SCH (08:54)
== END 2023-06-26 11:05 | disposition home or self-care (01) | DRG 885 ==
LOC: GPS 11:19
PROVIDERS: ADMIT Psychiatry & Neurology Psychiatry; ATTEND Internal Medicine
DX: F33.2 Major depressive disorder, recurrent severe without psychotic features (principal); R45.851 Suicidal ideations; F29 Unspecified psychosis not due to a substance or known physiological condition; F41.9 Anxiety disorder, unspecified; F41.0 Panic disorder [episodic paroxysmal anxiety]; E78.5 Hyperlipidemia, unspecified; I10 Essential (primary) hypertension; Z87.440 Personal history of urinary (tract) infections; F60.9 Personality disorder, unspecified
CPT/HCPCS: 36415; 80053-TC; 80061-TC; 82962-TC

== ENCOUNTER 2023-06-30 15:16 | Emergency (ER) | payer MEDICARE, BC ==
[~2023-06-30] VITALS: Ht 167.6 cm; Wt 74.8 kg
[~2023-06-30 15:16] MED LIST changes: -ALPR0.5T8 PO; +DOCU-141 PO; -ESCI5TAB PO; +SENN-261 PO
[2023-06-30 15:30] VITALS: TEMP 98
[2023-06-30 16:01] LABS: BASOPHILS # (AUTO) 0.1 K/uL (0.0-0.2); BASOPHILS % (AUTO) 0.9 % (0.0-2.0); EOSINOPHILS # (AUTO) 0.1 K/uL (0.0-0.7); EOSINOPHILS % (AUTO) 1.5 % (0.0-6.0); HEMATOCRIT 37 % (33-45); HEMOGLOBIN 12.4 g/dL (11.5-14.8); LYMPHOCYTES % (AUTO) 29.3 % (20.0-44.0); MEAN CORPUSCULAR HEMOGLOBIN 27 PG (26.0-33.0); MEAN CORPUSCULAR HGB CONC 33 g/dl (31.0-36.0); MEAN CORPUSCULAR VOLUME 82 fL (82-100); MONOCYTES # (AUTO) 0.5 K/uL (0.1-1.30); MONOCYTES % (AUTO) 7.5 % (2.0-12.0); NEUTROPHILS # (AUTO) 4.2 K/uL (1.8-8.9); NEUTROPHILS % (AUTO) 60.8 % (43.0-81.0); PLATELET COUNT (AUTO) 289 K/uL (150-450); RED BLOOD CELL COUNT(AUTO) 4.56 MIL/uL (4.0-5.2); RED CELL DISTRIBUTION WIDTH 14.2 % (11.5-15.0)
[2023-06-30 16:18] LABS: ALANINE AMINOTRANSFERASE 23 U/L (12-78); ALBUMIN 3.6 g/dL (3.4-5.0); ALCOHOL, BLOOD < 3 mg/dL (0-10); ALKALINE PHOSPHATASE 87 U/L (46-116); ASPARTATE AMINOTRANSFERASE 15 U/L (15-37); BILIRUBIN,DIRECT 0.1 mg/dL (0.0-0.2); BILIRUBIN,TOTAL 0.5 mg/dL (0.2-1.0); CALCIUM, SERUM 9.1 mg/dL (8.5-10.1); CARBON DIOXIDE 25 mmol/L (21-32); CHLORIDE 105 mmol/L (98-107); CREATININE 0.8 mg/dL (0.6-1.3); GLUCOSE 113 mg/dL (74-106); POTASSIUM 3.5 mmol/L (3.5-5.1); SODIUM SERUM 139 mmol/L (136-145); TOTAL PROTEIN, SERUM 6.2 g/dL (6.4-8.2); UREA NITROGEN, BLOOD 12 mg/dL (7-18)
[2023-06-30 16:28] LABS: ACETAMINOPHEN 0 ug/ml (10-30); SALICYLATE 2.1 mg/dL (2.8-20.0)
[2023-06-30 17:04] LABS: APPEARANCE,URINE CLEAR (CLEAR); BILIRUBIN,URINE 1+ (NEGATIVE); BLOOD, URINE NEGATIVE Ery/uL (NEGATIVE); COLOR,URINE YELLOW (YELLOW); KETONES,URINE 1+ mg/dL (NEGATIVE); LEUKOCYTE ESTERASE ,URINE NEGATIVE (NEGATIVE); NITRITE, URINE NEGATIVE (NEGATIVE); PROTEIN,URINE NEGATIVE (NEGATIVE); UGLUCOSE NEGATIVE (NEGATIVE)
[2023-06-30] MEDS ORDERED: ALPRAZOLAM 0.5 MG TABLET ONE (17:18)
[2023-06-30] MEDS ORDERED: OLANZAPINE ZYDIS 5 MG TAB.RAPDIS PO ONE (17:30)
[2023-06-30] MEDS ORDERED: ALPRAZOLAM 0.5 MG TABLET PO ONE (17:30)
[2023-06-30 17:37] LABS: AMPHETAMINE, URINE NEGATIVE (NEGATIVE); BARBITURATE, URINE NEGATIVE (NEGATIVE); CANNABINOID, URINE NEGATIVE (NEGATIVE); COCCAINE, URINE NEGATIVE (NEGATIVE); OPIATE, URINE NEGATIVE (NEGATIVE); PHENCYCLIDINE SCREEN,URINE NEGATIVE (NEGATIVE)
[2023-06-30 17:50] LABS: BENZODIAZEPINE, URINE POSITIVE (NEGATIVE)
[2023-06-30 19:24] VITALS: BP 161/82; O2SAT 97
== END 2023-06-30 19:41 ==
LOC: ER 15:21
DX: R45.851 Suicidal ideations (principal); I10 Essential (primary) hypertension; Z79.899 Other long term (current) drug therapy; Z60.2 Problems related to living alone
CPT/HCPCS: 36415; 80048-TC; 80076-TC; 85025-TC; G0480

== ENCOUNTER 2023-08-29 14:56 | Emergency (ER) | payer MEDICARE, BC ==
[~2023-08-29] VITALS: Ht 165.1 cm; Wt 61.2 kg
[2023-08-29 15:02] VITALS: TEMP 98
[2023-08-29] MEDS ORDERED: LORAZEPAM 0.5 MG TABLET ONE (16:28)
[2023-08-29] MEDS ORDERED: LORAZEPAM 1 MG TABLET PO ONE (16:30)
[2023-08-29 16:35] LABS: BASOPHILS # (AUTO) 0.1 K/uL (0.0-0.2); EOSINOPHILS # (AUTO) 0.1 K/uL (0.0-0.7); EOSINOPHILS % (AUTO) 0.9 % (0.0-6.0); HEMATOCRIT 41 % (33-45); LYMPHOCYTES # (AUTO) 1.4 K/uL (0.8-4.8); LYMPHOCYTES % (AUTO) 17.6 % (20.0-44.0); MEAN CORPUSCULAR HEMOGLOBIN 27 PG (26.0-33.0); MEAN CORPUSCULAR HGB CONC 32 g/dl (31.0-36.0); MEAN CORPUSCULAR VOLUME 83 fL (82-100); MONOCYTES # (AUTO) 0.7 K/uL (0.1-1.30); MONOCYTES % (AUTO) 8.5 % (2.0-12.0); NEUTROPHILS # (AUTO) 5.8 K/uL (1.8-8.9); PLATELET COUNT (AUTO) 313 K/uL (150-450); RED BLOOD CELL COUNT(AUTO) 4.87 MIL/uL (4.0-5.2); RED CELL DISTRIBUTION WIDTH 14.5 % (11.5-15.0)
[2023-08-29 16:39] LABS: APPEARANCE,URINE CLEAR (CLEAR); BILIRUBIN,URINE NEGATIVE (NEGATIVE); BLOOD, URINE NEGATIVE Ery/uL (NEGATIVE); COLOR,URINE YELLOW (YELLOW); KETONES,URINE NEGATIVE (NEGATIVE); LEUKOCYTE ESTERASE ,URINE NEGATIVE (NEGATIVE); NITRITE, URINE NEGATIVE (NEGATIVE); PROTEIN,URINE NEGATIVE (NEGATIVE); UGLUCOSE NEGATIVE (NEGATIVE); UROBILINOGEN,URINE 0.2 EU/dL (0.2)
[2023-08-29 17:02] LABS: CALCIUM, SERUM 9.2 mg/dL (8.5-10.1); CARBON DIOXIDE 26 mmol/L (21-32); CHLORIDE 102 mmol/L (98-107); CREATININE 0.6 mg/dL (0.6-1.3); GLUCOSE 136 mg/dL (74-106); POTASSIUM 3.7 mmol/L (3.5-5.1); SODIUM SERUM 136 mmol/L (136-145); UREA NITROGEN, BLOOD 11 mg/dL (7-18)
[2023-08-29 17:11] LABS: ALANINE AMINOTRANSFERASE 78 U/L (12-78); ALBUMIN 3.8 g/dL (3.4-5.0); ALCOHOL, BLOOD < 3 mg/dL (0-10); ALKALINE PHOSPHATASE 127 U/L (46-116); AMPHETAMINE, URINE NEGATIVE (NEGATIVE); ASPARTATE AMINOTRANSFERASE 24 U/L (15-37); BARBITURATE, URINE NEGATIVE (NEGATIVE); BENZODIAZEPINE, URINE NEGATIVE (NEGATIVE); BILIRUBIN,DIRECT 0.1 mg/dL (0.0-0.2); BILIRUBIN,TOTAL 0.2 mg/dL (0.2-1.0); CANNABINOID, URINE NEGATIVE (NEGATIVE); COCCAINE, URINE NEGATIVE (NEGATIVE); OPIATE, URINE NEGATIVE (NEGATIVE); PHENCYCLIDINE SCREEN,URINE NEGATIVE (NEGATIVE); TOTAL PROTEIN, SERUM 7.3 g/dL (6.4-8.2)
[2023-08-29 17:12] LABS: ACETAMINOPHEN 0 ug/ml (10-30); SALICYLATE 1.7 mg/dL (2.8-20.0)
[2023-08-29 21:47] VITALS: BP 146/71; O2SAT 99
== END 2023-08-29 21:47 ==
LOC: ER 14:59
DX: R45.851 Suicidal ideations (principal); I10 Essential (primary) hypertension; Z79.899 Other long term (current) drug therapy; Z20.822 Contact with and (suspected) exposure to COVID-19; Z60.2 Problems related to living alone
CPT/HCPCS: 36415; 80048-TC; 80076-TC; 85025-TC; C9803; G0480

== ENCOUNTER 2023-12-03 16:36 | Emergency (ER) | payer MEDICARE, BC ==
[~2023-12-03] VITALS: Ht 165.1 cm; Wt 79.8 kg
[~2023-12-03 16:36] MED LIST changes: +CLON0.5T4 PO; +TEMA7.5C12 PO
[2023-12-03 17:08] LABS: BASOPHILS % (AUTO) 0.2 % (0.0-2.0); EOSINOPHILS # (AUTO) 0.1 K/uL (0.0-0.7); EOSINOPHILS % (AUTO) 1.2 % (0.0-6.0); HEMATOCRIT 42 % (33-45); HEMOGLOBIN 13.6 g/dL (11.5-14.8); LYMPHOCYTES # (AUTO) 1.9 K/uL (0.8-4.8); LYMPHOCYTES % (AUTO) 26.2 % (20.0-44.0); MEAN CORPUSCULAR HEMOGLOBIN 26 PG (26.0-33.0); MEAN CORPUSCULAR HGB CONC 33 g/dl (31.0-36.0); MEAN CORPUSCULAR VOLUME 80 fL (82-100); MONOCYTES # (AUTO) 0.6 K/uL (0.1-1.30); MONOCYTES % (AUTO) 7.4 % (2.0-12.0); NEUTROPHILS # (AUTO) 4.8 K/uL (1.8-8.9); PLATELET COUNT (AUTO) 308 K/uL (150-450); RED BLOOD CELL COUNT(AUTO) 5.17 MIL/uL (4.0-5.2); RED CELL DISTRIBUTION WIDTH 14.7 % (11.5-15.0); WHITE BLOOD COUNT (AUTO) 7.4 K/uL (4.3-11.0)
[2023-12-03 17:28] LABS: ALANINE AMINOTRANSFERASE 35 U/L (12-78); ALBUMIN 3.6 g/dL (3.4-5.0); ALCOHOL, BLOOD < 3 mg/dL (0-10); ALKALINE PHOSPHATASE 97 U/L (46-116); ASPARTATE AMINOTRANSFERASE 14 U/L (15-37); BILIRUBIN,DIRECT 0.1 mg/dL (0.0-0.2); BILIRUBIN,TOTAL 0.4 mg/dL (0.2-1.0); CALCIUM, SERUM 9.4 mg/dL (8.5-10.1); CARBON DIOXIDE 27 mmol/L (21-32); CHLORIDE 101 mmol/L (98-107); CREATININE 0.6 mg/dL (0.6-1.3); GLUCOSE 106 mg/dL (74-106); POTASSIUM 3.8 mmol/L (3.5-5.1); SODIUM SERUM 136 mmol/L (136-145); TOTAL PROTEIN, SERUM 6.7 g/dL (6.4-8.2); UREA NITROGEN, BLOOD 13 mg/dL (7-18)
[2023-12-03 17:34] LABS: ACETAMINOPHEN 0 ug/ml (10-30); SALICYLATE 1.1 mg/dL (2.8-20.0)
[2023-12-03] MEDS ORDERED: LORAZEPAM 0.5 MG TABLET ONE (18:02)
[2023-12-03 18:04] LABS: APPEARANCE,URINE CLEAR (CLEAR); BILIRUBIN,URINE NEGATIVE (NEGATIVE); BLOOD, URINE NEGATIVE Ery/uL (NEGATIVE); COLOR,URINE YELLOW (YELLOW); KETONES,URINE NEGATIVE (NEGATIVE); LEUKOCYTE ESTERASE ,URINE TRACE (NEGATIVE); NITRITE, URINE NEGATIVE (NEGATIVE); PROTEIN,URINE NEGATIVE (NEGATIVE); UGLUCOSE NEGATIVE (NEGATIVE); UROBILINOGEN,URINE 0.2 EU/dL (0.2)
[2023-12-03] MEDS: LORAZEPAM 1 MG TABLET PO ONE (18:04)
[2023-12-03 18:12] LABS: ADD URINE CULTURE NO; BACTERIA,URINE 1+ /HPF (None Seen); MUCUS,URINE Few /LPF (None Seen); RBC,URINE 0-2 /HPF (0-2); SQUAMOUS EPITHELIAL CELL,UR 0-2 /HPF (None Seen)
[2023-12-03 18:36] LABS: AMPHETAMINE, URINE NEGATIVE (NEGATIVE); BARBITURATE, URINE NEGATIVE (NEGATIVE); BENZODIAZEPINE, URINE NEGATIVE (NEGATIVE); CANNABINOID, URINE NEGATIVE (NEGATIVE); COCCAINE, URINE NEGATIVE (NEGATIVE); OPIATE, URINE NEGATIVE (NEGATIVE); PHENCYCLIDINE SCREEN,URINE NEGATIVE (NEGATIVE)
[2023-12-03] MEDS ORDERED: QUETIAPINE FUMARATE 100 MG TABLET ONE ×2 (22:04→23:06)
[2023-12-03] MEDS ORDERED: MIRTAZAPINE 15 MG TABLET ONE (22:04)
[2023-12-03] MEDS: MIRTAZAPINE 15 MG TABLET PO ONE (22:15)
[2023-12-03] MEDS ORDERED: ATORVASTATIN 10 MG TABLET ONE (23:06)
[2023-12-03] MEDS: QUETIAPINE FUMARATE 100 MG TABLET PO ONE (23:11)
[2023-12-03] MEDS: QUETIAPINE FUMARATE 100 MG TABLET PO SCH (23:11)
[2023-12-03] MEDS: ATORVASTATIN 10 MG TABLET PO SCH (23:11)
[2023-12-04] MEDS ORDERED: LORAZEPAM 0.5 MG TABLET ONE (04:15)
[2023-12-04] MEDS: LORAZEPAM 1 MG TABLET PO ONE (04:17)
[2023-12-04] MEDS ORDERED: MIRT-90 PO (08:36)
[2023-12-04] MEDS ORDERED: QUET100T PO (08:36)
[2023-12-04] MEDS ORDERED: DIPH25TA25 PO (08:36)
[2023-12-04] MEDS ORDERED: PARO20TA7 PO (08:36)
[2023-12-04] MEDS ORDERED: MAG355OR18 PO (08:36)
[2023-12-04] MEDS ORDERED: PSYLLIUM PO (08:36)
[2023-12-04] MEDS ORDERED: QUET300T2 PO (08:36)
[2023-12-04] MEDS ORDERED: MAGN400O6 PO (08:36)
[2023-12-04] MEDS ORDERED: ACET325T53 PO (08:36)
[2023-12-04] MEDS ORDERED: ATEN25TA PO (08:36)
[2023-12-04] MEDS ORDERED: QUETIAPINE FUMARATE 100 MG TABLET ONE (09:13)
[2023-12-04] MEDS ORDERED: QUETIAPINE FUMARATE 25 MG TABLET ONE (09:13)
[2023-12-04] MEDS ORDERED: ATENOLOL 50 MG TABLET ONE (09:14)
[2023-12-04] MEDS ORDERED: CHOLECALCIFEROL 1,000 UNIT TABLET (VIT D3) ONE (09:14)
[2023-12-04] MEDS ORDERED: ATORVASTATIN 10 MG TABLET ONE (09:14)
[2023-12-04] MEDS ORDERED: MIRTAZAPINE 15 MG TABLET ONE (09:14)
[2023-12-04] MEDS ORDERED: LISINOPRIL (20MG) 20 MG TABLET ONE (09:14)
[2023-12-04] MEDS: QUETIAPINE FUMARATE 25 MG TABLET PO SCH (09:30)
[2023-12-04] MEDS: ATORVASTATIN 10 MG TABLET PO SCH (09:35)
[2023-12-04] MEDS: MIRTAZAPINE 15 MG TABLET PO ONE (09:35)
[2023-12-04] MEDS: ATENOLOL 50 MG TABLET PO ONE (09:36)
[2023-12-04] MEDS: LISINOPRIL (10MG) 10 MG TABLET PO SCH (09:36)
[2023-12-04] MEDS: CHOLECALCIFEROL (VITAMIN D 3) 400 UNIT TABLET PO SCH (09:36)
[2023-12-04] MEDS: QUETIAPINE FUMARATE 100 MG TABLET PO SCH (09:36)
[2023-12-04] MEDS: PAROXETINE HCL 20 MG TABLET PO SCH (09:36)
[2023-12-04] MEDS: PSYLLIUM SEED 1 PKT PACKET PO SCH (11:08)
[2023-12-04 13:00] VITALS: BP 125/77; TEMP 98.4; O2SAT 100
== END 2023-12-04 13:28 ==
LOC: ER 16:43
DX: R45.851 Suicidal ideations (principal); I10 Essential (primary) hypertension; Z79.899 Other long term (current) drug therapy; Z20.822 Contact with and (suspected) exposure to COVID-19; Z60.2 Problems related to living alone
CPT/HCPCS: 36415; 80048-TC; 80076-TC; 81001; 85025-TC; 87081-TC; G0480

== ENCOUNTER 2024-03-14 17:07 | Emergency (ER) | payer MEDICARE, BC ==
[~2024-03-14 17:07] MED LIST changes: +ACET325T53 PO; +ATEN25TA PO; -ATEN50TA PO; -CHOL100043 PO; +DIPH25TA25 PO; +MAG355OR18 PO; +MAGN400O6 PO; +MIRT-90 PO; +PARO20TA7 PO; -POLY17PO4 PO; +PSYLLIUM PO; +QUET100T PO; +QUET300T2 PO
[2024-03-15] MEDS ORDERED: GABA-532 PO (15:08)
== END 2024-03-14 17:41 | disposition home or self-care (01) ==
LOC: ER 17:11
DX: R53.1 Weakness (principal); Z53.21 Procedure and treatment not carried out due to patient leaving prior to being seen by health care provider

== ENCOUNTER 2024-03-14 18:51 | Emergency (ER) | payer MEDICARE, BC ==
[2024-03-15] MEDS ORDERED: GABA-532 PO (15:08)
== END 2024-03-15 00:06 | disposition left against medical advice (07) ==
LOC: EDUNIT# 18:51 → ER 18:56
DX: R53.1 Weakness (principal); Z53.21 Procedure and treatment not carried out due to patient leaving prior to being seen by health care provider

== ENCOUNTER 2024-03-15 12:27 | Emergency (ER) | payer MEDICARE, BC ==
[~2024-03-15] VITALS: Ht 165.1 cm; Wt 60.3 kg
[2024-03-15] MEDS ORDERED: GABAPENTIN 100 MG CAPSULE ONE (13:58)
[2024-03-15] MEDS ORDERED: LORAZEPAM 0.5 MG TABLET ONE (13:58)
[2024-03-15] MEDS: GABAPENTIN 100 MG CAPSULE PO ONE (14:05)
[2024-03-15] MEDS: LORAZEPAM 1 MG TABLET PO ONE (14:05)
[2024-03-15] MEDS ORDERED: GABA-532 PO (15:08)
[2024-03-15 18:01] VITALS: BP 136/69; TEMP 98.6; O2SAT 98
== END 2024-03-15 16:30 | disposition home or self-care (01) ==
LOC: ER 12:50
DX: G25.81 Restless legs syndrome (principal); F32.A Depression, unspecified; I10 Essential (primary) hypertension; Z60.2 Problems related to living alone

== ENCOUNTER 2024-03-16 11:36 | Emergency (ER) | payer MEDICARE, BC ==
[~2024-03-16 11:36] MED LIST changes: +GABA-532 PO
== END 2024-03-16 13:37 | disposition left against medical advice (07) ==
LOC: ER 11:43
DX: G25.81 Restless legs syndrome (principal); F32.A Depression, unspecified; Z53.21 Procedure and treatment not carried out due to patient leaving prior to being seen by health care provider

== ENCOUNTER 2024-03-22 13:20 | Emergency (ER) | payer MEDICARE, BC ==
[~2024-03-22] VITALS: Ht 162.6 cm; Wt 70.8 kg
[2024-03-22 14:28] LABS: BASOPHILS # (AUTO) 0.1 K/uL (0.0-0.2); BASOPHILS % (AUTO) 0.8 % (0.0-2.0); EOSINOPHILS # (AUTO) 0.1 K/uL (0.0-0.7); EOSINOPHILS % (AUTO) 0.8 % (0.0-6.0); HEMATOCRIT 40 % (33-45); HEMOGLOBIN 12.8 g/dL (11.5-14.8); LYMPHOCYTES # (AUTO) 1.6 K/uL (0.8-4.8); LYMPHOCYTES % (AUTO) 19.3 % (20.0-44.0); MEAN CORPUSCULAR HEMOGLOBIN 26 PG (26.0-33.0); MEAN CORPUSCULAR HGB CONC 32 g/dl (31.0-36.0); MEAN CORPUSCULAR VOLUME 81 fL (82-100); MONOCYTES # (AUTO) 0.7 K/uL (0.1-1.30); MONOCYTES % (AUTO) 8.4 % (2.0-12.0); NEUTROPHILS % (AUTO) 70.7 % (43.0-81.0); PLATELET COUNT (AUTO) 294 K/uL (150-450); RED BLOOD CELL COUNT(AUTO) 4.87 MIL/uL (4.0-5.2); RED CELL DISTRIBUTION WIDTH 14.1 % (11.5-15.0); WHITE BLOOD COUNT (AUTO) 8.5 K/uL (4.3-11.0)
[2024-03-22 14:41] LABS: ALANINE AMINOTRANSFERASE 36 U/L (12-78); ALBUMIN 3.5 g/dL (3.4-5.0); ALCOHOL, BLOOD < 3 mg/dL (0-10); ALKALINE PHOSPHATASE 75 U/L (46-116); ASPARTATE AMINOTRANSFERASE 14 U/L (15-37); BILIRUBIN,DIRECT 0.1 mg/dL (0.0-0.2); BILIRUBIN,TOTAL 0.4 mg/dL (0.2-1.0); CALCIUM, SERUM 9.3 mg/dL (8.5-10.1); CARBON DIOXIDE 28 mmol/L (21-32); CHLORIDE 103 mmol/L (98-107); CREATININE 0.7 mg/dL (0.6-1.3); GLUCOSE 116 mg/dL (74-106); POTASSIUM 4.1 mmol/L (3.5-5.1); SODIUM SERUM 136 mmol/L (136-145); TOTAL PROTEIN, SERUM 6.6 g/dL (6.4-8.2); UREA NITROGEN, BLOOD 19 mg/dL (7-18)
[2024-03-22 14:45] LABS: ACETAMINOPHEN <10 ug/ml (10-30); SALICYLATE 0.8 mg/dL (2.8-20.0)
[2024-03-22 15:09] LABS: APPEARANCE,URINE CLEAR (CLEAR); BILIRUBIN,URINE NEGATIVE (NEGATIVE); BLOOD, URINE NEGATIVE Ery/uL (NEGATIVE); COLOR,URINE YELLOW (YELLOW); KETONES,URINE NEGATIVE (NEGATIVE); LEUKOCYTE ESTERASE ,URINE NEGATIVE (NEGATIVE); NITRITE, URINE NEGATIVE (NEGATIVE); PROTEIN,URINE NEGATIVE (NEGATIVE); UGLUCOSE NEGATIVE (NEGATIVE); UROBILINOGEN,URINE 0.2 EU/dL (0.2)
[2024-03-22 15:11] LABS: AMPHETAMINE, URINE NEGATIVE (NEGATIVE); BARBITURATE, URINE NEGATIVE (NEGATIVE); CANNABINOID, URINE NEGATIVE (NEGATIVE); COCCAINE, URINE NEGATIVE (NEGATIVE); OPIATE, URINE NEGATIVE (NEGATIVE); PHENCYCLIDINE SCREEN,URINE NEGATIVE (NEGATIVE)
[2024-03-22 15:23] LABS: BENZODIAZEPINE, URINE POSITIVE (NEGATIVE)
[2024-03-22] MEDS ORDERED: OLAN10TA3 PO (15:33)
[2024-03-22] MEDS ORDERED: LAMO25TA5 PO (15:33)
[2024-03-22] MEDS ORDERED: ATEN50TA PO (15:33)
[2024-03-22] MEDS ORDERED: TEMA15CA PO (15:33)
[2024-03-22] MEDS ORDERED: ROPI0.255 PO (15:33)
[2024-03-22] MEDS ORDERED: LORAZEPAM 0.5 MG TABLET ONE (17:09)
[2024-03-22] MEDS: LORAZEPAM 1 MG TABLET PO ONE (17:12)
[2024-03-22] MEDS ORDERED: ROPI0.5T4 PO (22:19)
[2024-03-23 04:59] VITALS: BP 139/65; TEMP 98.2; O2SAT 97
== END 2024-03-23 03:00 ==
LOC: ER 13:22
DX: R45.851 Suicidal ideations (principal); G25.81 Restless legs syndrome; I10 Essential (primary) hypertension; Z79.899 Other long term (current) drug therapy; Z20.822 Contact with and (suspected) exposure to COVID-19
CPT/HCPCS: 36415; 80048-TC; 80076-TC; 85025-TC; G0480

== ENCOUNTER 2024-05-06 01:59 | Emergency (ER) | payer MEDICARE, BC ==
[~2024-05-06] VITALS: Ht 165.1 cm; Wt 59.0 kg
[~2024-05-06 01:59] MED LIST changes: -ACET325T53 PO; -ATEN25TA PO; +ATEN50TA PO; -CLON0.5T4 PO; -DIPH25TA25 PO; -GABA-532 PO; +LAMO25TA5 PO; -MAG355OR18 PO; -MAGN400O6 PO; -MIRT-90 PO; +OLAN10TA3 PO; -PARO20TA7 PO; -PSYLLIUM PO; -QUET100T PO; -QUET300T2 PO; +ROPI0.255 PO; +ROPI0.5T4 PO; +TEMA15CA PO; -TEMA7.5C12 PO
--- NOTE | 2024-05-06 03:06 | NUR ---
URINE SPECIMEN COLLECTED SENT TO LAB
--- NOTE | 2024-05-06 03:09 | NUR ---
BIBS C/O ABDOMINAL PAIN X1DAY -N/V +DIARRHEA, PLACED TO BED AND HOOKED TO A MONITOR
--- NOTE | 2024-05-06 03:14 | NUR ---
[employer] ART BEDSIDE
[2024-05-06 03:29] LABS: BASOPHILS % (AUTO) 0.5 % (0.0-2.0); EOSINOPHILS # (AUTO) 0.1 K/uL (0.0-0.7); EOSINOPHILS % (AUTO) 1.9 % (0.0-6.0); HEMATOCRIT 41 % (33-45); HEMOGLOBIN 13.2 g/dL (11.5-14.8); LYMPHOCYTES # (AUTO) 1.7 K/uL (0.8-4.8); LYMPHOCYTES % (AUTO) 28.8 % (20.0-44.0); MEAN CORPUSCULAR HEMOGLOBIN 27 PG (26.0-33.0); MEAN CORPUSCULAR HGB CONC 33 g/dl (31.0-36.0); MEAN CORPUSCULAR VOLUME 83 fL (82-100); MONOCYTES # (AUTO) 0.7 K/uL (0.1-1.30); MONOCYTES % (AUTO) 11.7 % (2.0-12.0); NEUTROPHILS # (AUTO) 3.3 K/uL (1.8-8.9); NEUTROPHILS % (AUTO) 57.1 % (43.0-81.0); PLATELET COUNT (AUTO) 257 K/uL (150-450); RED BLOOD CELL COUNT(AUTO) 4.93 MIL/uL (4.0-5.2); RED CELL DISTRIBUTION WIDTH 14.6 % (11.5-15.0); WHITE BLOOD COUNT (AUTO) 5.7 K/uL (4.3-11.0)
[2024-05-06 03:36] LABS: APPEARANCE,URINE CLEAR (CLEAR); BILIRUBIN,URINE NEGATIVE (NEGATIVE); BLOOD, URINE NEGATIVE Ery/uL (NEGATIVE); COLOR,URINE YELLOW (YELLOW); KETONES,URINE NEGATIVE (NEGATIVE); LEUKOCYTE ESTERASE ,URINE NEGATIVE (NEGATIVE); NITRITE, URINE NEGATIVE (NEGATIVE); PROTEIN,URINE NEGATIVE (NEGATIVE); UGLUCOSE NEGATIVE (NEGATIVE); UROBILINOGEN,URINE 0.2 EU/dL (0.2)
--- NOTE | 2024-05-06 03:40 | NUR ---
WARP DOFFER AT BEDSIDE
[2024-05-06 03:45] LABS: CALCIUM, SERUM 9.2 mg/dL (8.5-10.1); CARBON DIOXIDE 30 mmol/L (21-32); CHLORIDE 105 mmol/L (98-107); CREATININE 0.8 mg/dL (0.6-1.3); GLUCOSE 115 mg/dL (74-106); LACTIC ACID 0.9 mmol/L (0.4-2.0); POTASSIUM 3.7 mmol/L (3.5-5.1); SODIUM SERUM 141 mmol/L (136-145); UREA NITROGEN, BLOOD 21 mg/dL (7-18)
--- NOTE | 2024-05-06 03:48 | NUR ---
PT TAKEN TO CT VIA TAYL[facility]
[2024-05-06 03:50] LABS: ALANINE AMINOTRANSFERASE 49 U/L (12-78); ALBUMIN 3.7 g/dL (3.4-5.0); ALKALINE PHOSPHATASE 93 U/L (46-116); ASPARTATE AMINOTRANSFERASE 17 U/L (15-37); BILIRUBIN,TOTAL 0.2 mg/dL (0.2-1.0); LIPASE 46 U/L (16-77); NT-PRO BNP 116 pg/mL (0-125); TOTAL PROTEIN, SERUM 6.7 g/dL (6.4-8.2)
[2024-05-06 05:16] VITALS: BP 113/65; TEMP 98; O2SAT 96
--- NOTE | 2024-05-06 05:16 | NUR ---
Patient discharged to home in stable condition. Written and verbal after care instructions given. Patient verbalizes understanding of instruction.
== END 2024-05-06 05:17 | disposition home or self-care (01) ==
LOC: ER 02:05
DX: R10.9 Unspecified abdominal pain (principal); R19.7 Diarrhea, unspecified; I10 Essential (primary) hypertension; F32.A Depression, unspecified; F41.9 Anxiety disorder, unspecified; Z86.79 Personal history of other diseases of the circulatory system; Z87.448 Personal history of other diseases of urinary system; Z87.42 Personal history of other diseases of the female genital tract; Z60.2 Problems related to living alone; Z59.00 Homelessness unspecified
CPT/HCPCS: 36415; 71045-TC; 80053-TC; 83605-TC; 83690-TC; 83880; 84484-TC; 85025-TC

== ENCOUNTER 2024-05-20 15:02 | Emergency (ER) | payer MEDICARE, BC ==
[~2024-05-20] VITALS: Ht 165.1 cm; Wt 61.7 kg
[2024-05-20] MEDS ORDERED: KETOROLAC TROMETHAMINE 15 MG/ML VIAL ONE (15:21)
[2024-05-20] MEDS ORDERED: MORPHINE SULFATE INJ 2 MG/ML DISP.SYRIN ONE (15:21)
[2024-05-20] MEDS ORDERED: ONDANSETRON HCL/PF 4 MG/2 ML VIAL ONE (15:21)
[2024-05-20] MEDS: KETOROLAC TROMETHAMINE 15 MG/ML VIAL IV ONE (15:30)
[2024-05-20] MEDS: IV NS 0.9% 1,000 ML BAG IV ONE (15:30)
[2024-05-20] MEDS: MORPHINE SULFATE INJ 2 MG/ML DISP.SYRIN IV ONE (15:43)
[2024-05-20] MEDS: ONDANSETRON HCL/PF 4 MG/2 ML VIAL IVP ONE (15:43)
[2024-05-20 15:44] LABS: BASOPHILS # (AUTO) 0.1 K/uL (0.0-0.2); BASOPHILS % (AUTO) 0.8 % (0.0-2.0); EOSINOPHILS # (AUTO) 0.1 K/uL (0.0-0.7); EOSINOPHILS % (AUTO) 1.4 % (0.0-6.0); HEMATOCRIT 42 % (33-45); HEMOGLOBIN 13.7 g/dL (11.5-14.8); LYMPHOCYTES # (AUTO) 2.3 K/uL (0.8-4.8); LYMPHOCYTES % (AUTO) 33.2 % (20.0-44.0); MEAN CORPUSCULAR HEMOGLOBIN 27 PG (26.0-33.0); MEAN CORPUSCULAR HGB CONC 33 g/dl (31.0-36.0); MEAN CORPUSCULAR VOLUME 83 fL (82-100); MONOCYTES # (AUTO) 0.6 K/uL (0.1-1.30); MONOCYTES % (AUTO) 8.7 % (2.0-12.0); NEUTROPHILS # (AUTO) 3.8 K/uL (1.8-8.9); NEUTROPHILS % (AUTO) 55.9 % (43.0-81.0); PLATELET COUNT (AUTO) 320 K/uL (150-450); RED BLOOD CELL COUNT(AUTO) 5.01 MIL/uL (4.0-5.2); RED CELL DISTRIBUTION WIDTH 14.3 % (11.5-15.0); WHITE BLOOD COUNT (AUTO) 6.8 K/uL (4.3-11.0)
[2024-05-20] MEDS ORDERED: ALPRAZOLAM 0.5 MG TABLET ONE (15:44)
[2024-05-20] MEDS: ALPRAZOLAM 0.5 MG TABLET PO ONE (15:46)
[2024-05-20 15:48] LABS: APPEARANCE,URINE Slightly Cloudy (CLEAR); BILIRUBIN,URINE Negative (NEGATIVE); BLOOD, URINE Negative Ery/uL (NEGATIVE); COLOR,URINE YELLOW (YELLOW); KETONES,URINE Negative (NEGATIVE); LEUKOCYTE ESTERASE ,URINE Trace (NEGATIVE); NITRITE, URINE Negative (NEGATIVE); PH,URINE 6.5 (5.0-8.0); PROTEIN,URINE Negative (NEGATIVE); UGLUCOSE Negative (NEGATIVE); UROBILINOGEN,URINE 0.2 EU/dL (0.2)
[2024-05-20 15:59] LABS: CALCIUM, SERUM 9.7 mg/dL (8.5-10.1); CARBON DIOXIDE 29 mmol/L (21-32); CHLORIDE 106 mmol/L (98-107); CREATININE 0.9 mg/dL (0.6-1.3); GLUCOSE 101 mg/dL (74-106); POTASSIUM 4.7 mmol/L (3.5-5.1); SODIUM SERUM 140 mmol/L (136-145); UREA NITROGEN, BLOOD 13 mg/dL (7-18)
[2024-05-20 16:01] LABS: INR 1.01 (0.91-1.10); PARTIAL THROMBOPLASTIN TIME 25.4 SEC (24.3-34.3); PROTHROMBIN TIME 10.4 SECS (9.2-11.1)
[2024-05-20 16:05] LABS: ALANINE AMINOTRANSFERASE 57 U/L (12-78); ALBUMIN 4.1 g/dL (3.4-5.0); ALKALINE PHOSPHATASE 79 U/L (46-116); ASPARTATE AMINOTRANSFERASE 23 U/L (15-37); BILIRUBIN,DIRECT 0.1 mg/dL (0.0-0.2); BILIRUBIN,TOTAL 0.5 mg/dL (0.2-1.0); LIPASE 41 U/L (16-77); TOTAL PROTEIN, SERUM 6.9 g/dL (6.4-8.2)
[2024-05-20 16:47] VITALS: BP 125/61; TEMP 98.3; O2SAT 98
[2024-05-20 16:56] LABS: ADD URINE CULTURE YES; BACTERIA,URINE 1+ /HPF (None Seen); RBC,URINE 0-2 /HPF (0-2)
== END 2024-05-20 16:48 | disposition home or self-care (01) ==
LOC: ER 15:37
DX: R19.7 Diarrhea, unspecified (principal); R10.32 Left lower quadrant pain; G25.81 Restless legs syndrome; I10 Essential (primary) hypertension; Z86.79 Personal history of other diseases of the circulatory system; Z87.19 Personal history of other diseases of the digestive system; Z86.59 Personal history of other mental and behavioral disorders; Z60.2 Problems related to living alone
CPT/HCPCS: 99285; 74176; 96374; 71045; 96361; 93005; 85025; 80048; 87086; 83690; 80076; 81001; 36415; 84484; 85730; A4223; J1885; J2270; J2405

== ENCOUNTER 2024-06-19 15:46 | Inpatient (IN) | payer MEDICARE, BC ==
[~2024-06-19] VITALS: Ht 165.1 cm; Wt 61.7 kg
[2024-06-19 16:30] LABS: BASOPHILS # (AUTO) 0.1 K/uL (0.0-0.2); BASOPHILS % (AUTO) 0.8 % (0.0-2.0); EOSINOPHILS # (AUTO) 0.1 K/uL (0.0-0.7); EOSINOPHILS % (AUTO) 1.2 % (0.0-6.0); HEMATOCRIT 42 % (33-45); LYMPHOCYTES # (AUTO) 2.1 K/uL (0.8-4.8); LYMPHOCYTES % (AUTO) 28.2 % (20.0-44.0); MEAN CORPUSCULAR HEMOGLOBIN 27 PG (26.0-33.0); MEAN CORPUSCULAR HGB CONC 33 g/dl (31.0-36.0); MEAN CORPUSCULAR VOLUME 82 fL (82-100); MONOCYTES # (AUTO) 0.7 K/uL (0.1-1.30); NEUTROPHILS # (AUTO) 4.6 K/uL (1.8-8.9); NEUTROPHILS % (AUTO) 60.8 % (43.0-81.0); PLATELET COUNT (AUTO) 296 K/uL (150-450); RED BLOOD CELL COUNT(AUTO) 5.16 MIL/uL (4.0-5.2); RED CELL DISTRIBUTION WIDTH 14.6 % (11.5-15.0); WHITE BLOOD COUNT (AUTO) 7.5 K/uL (4.3-11.0)
[2024-06-19 16:45] LABS: ALANINE AMINOTRANSFERASE 26 U/L (12-78); ALCOHOL, BLOOD < 3 mg/dL (0-10); ALKALINE PHOSPHATASE 74 U/L (46-116); ASPARTATE AMINOTRANSFERASE 18 U/L (15-37); BILIRUBIN,DIRECT 0.1 mg/dL (0.0-0.2); BILIRUBIN,TOTAL 0.6 mg/dL (0.2-1.0); CALCIUM, SERUM 9.6 mg/dL (8.5-10.1); CARBON DIOXIDE 26 mmol/L (21-32); CHLORIDE 106 mmol/L (98-107); CREATININE 0.9 mg/dL (0.6-1.3); GLUCOSE 106 mg/dL (74-106); POTASSIUM 3.8 mmol/L (3.5-5.1); SODIUM SERUM 140 mmol/L (136-145); TOTAL PROTEIN, SERUM 6.9 g/dL (6.4-8.2); UREA NITROGEN, BLOOD 7 mg/dL (7-18)
[2024-06-19 16:47] LABS: ACETAMINOPHEN 0 ug/ml (10-30); SALICYLATE 1.5 mg/dL (2.8-20.0)
[2024-06-19] MEDS ORDERED: OLANZAPINE 10 MG VIAL IM ONE (17:08)
[2024-06-19 17:10] LABS: APPEARANCE,URINE Slightly Cloudy (CLEAR); BILIRUBIN,URINE Negative (NEGATIVE); BLOOD, URINE Negative Ery/uL (NEGATIVE); COLOR,URINE LIGHT YELLOW (YELLOW); KETONES,URINE Trace mg/dL (NEGATIVE); LEUKOCYTE ESTERASE ,URINE Trace (NEGATIVE); NITRITE, URINE Negative (NEGATIVE); PH,URINE 7.5 (5.0-8.0); PROTEIN,URINE Negative (NEGATIVE); UGLUCOSE Negative (NEGATIVE); UROBILINOGEN,URINE 0.2 EU/dL (0.2)
[2024-06-19] MEDS: OLANZAPINE 10 MG VIAL IM ONE (17:10)
[2024-06-19 17:21] LABS: AMPHETAMINE, URINE NEGATIVE (NEGATIVE); BARBITURATE, URINE NEGATIVE (NEGATIVE); CANNABINOID, URINE NEGATIVE (NEGATIVE); COCCAINE, URINE NEGATIVE (NEGATIVE); OPIATE, URINE NEGATIVE (NEGATIVE); PHENCYCLIDINE SCREEN,URINE NEGATIVE (NEGATIVE)
[2024-06-19 17:22] LABS: BENZODIAZEPINE, URINE POSITIVE (NEGATIVE)
[2024-06-19 17:45] LABS: ADD URINE CULTURE YES; BACTERIA,URINE Rare /HPF (None Seen); RBC,URINE 0-2 /HPF (0-2); SQUAMOUS EPITHELIAL CELL,UR Few /HPF (None Seen); URINE AMORPHOUS PHOSPHATES Many /HPF (None Seen)
[2024-06-19] MEDS ORDERED: GABA-532 PO (19:09)
[2024-06-19] MEDS ORDERED: TOPI50TA24 PO (19:09)
[2024-06-19] MEDS: CEPHALEXIN MONOHYDRATE 500 MG CAPSULE PO ONE (20:05)
[2024-06-19] MEDS ORDERED: LORAZEPAM INJ 2 MG/ML VIAL ONE (21:35)
[2024-06-19] MEDS: LORAZEPAM INJ 2 MG/ML VIAL IM ONE (21:40)
[2024-06-20] MEDS ORDERED: clonazePAM 0.5 MG TABLET PO PRN (08:30)
[2024-06-20] MEDS ORDERED: MAGNESIUM HYDROXIDE 30 ML UDC PO PRN (08:30)
[2024-06-20] MEDS: BLOOD SUGAR DIAGNOSTIC 1 EACH STRIP IN ONE (08:30)
[2024-06-20] MEDS: HALOPERIDOL LACTATE INJ 5 MG/ML VIAL IM ONE (08:32)
[2024-06-20] MEDS: diphenhydrAMINE HCL 50 MG/ML VIAL IM ONE (08:33)
[2024-06-20 08:46] VITALS: BP 160/100; TEMP 98; O2SAT 98
[2024-06-20] MEDS ORDERED: hydrOXYzine PAMOATE 25 MG CAPSULE PO PRN (09:00)
[2024-06-20] MEDS: QUETIAPINE FUMARATE 25 MG TABLET PO SCH (12:50)
[2024-06-20] MEDS: hydrOXYzine PAMOATE 25 MG CAPSULE PO PRN (14:36)
[2024-06-20 15:21] LABS: THYROID STIMULATING HORMONE 0.63 uIU/mL (0.358-3.74)
[2024-06-20] MEDS: ATENOLOL 50 MG TABLET PO SCH (15:31)
[2024-06-20] MEDS: LISINOPRIL (5MG) 5 MG TABLET PO SCH (15:31)
[2024-06-20 16:00] VITALS: BP 146/86; TEMP 98; O2SAT 98
[2024-06-20 20:00] VITALS: BP 126/62; TEMP 98.3; O2SAT 98
[2024-06-20] MEDS: TEMAZEPAM 7.5 MG CAPSULE PO PRN (22:18)
[2024-06-21 08:00] VITALS: BP 125/58; TEMP 97.7; O2SAT 99
[2024-06-21 08:18] LABS: ALANINE AMINOTRANSFERASE 22 U/L (12-78); ALBUMIN 3.7 g/dL (3.4-5.0); ALKALINE PHOSPHATASE 77 U/L (46-116); ASPARTATE AMINOTRANSFERASE 20 U/L (15-37); BILIRUBIN,TOTAL 0.6 mg/dL (0.2-1.0); CALCIUM, SERUM 9.8 mg/dL (8.5-10.1); CARBON DIOXIDE 25 mmol/L (21-32); CHLORIDE 110 mmol/L (98-107); CHOLESTEROL 161 mg/dL (<200); CREATININE 0.9 mg/dL (0.6-1.3); GLUCOSE 119 mg/dL (74-106); HDL CHOLESTEROL 79 mg/dL (40-60); LDL 65 mg/dL (0-99); POTASSIUM 4.3 mmol/L (3.5-5.1); SODIUM SERUM 147 mmol/L (136-145); TOTAL PROTEIN, SERUM 6.8 g/dL (6.4-8.2); TRIGLYCERIDES 71 mg/dL (30-150); UREA NITROGEN, BLOOD 11 mg/dL (7-18)
[2024-06-21] MEDS: LamoTRIgine 25 MG TABLET PO SCH (08:51)
[2024-06-21] MEDS: busPIRone 5 MG TABLET PO SCH (08:51)
[2024-06-21] MEDS: DOCUSATE SODIUM 100 MG CAPSULE PO PRN (08:51)
[2024-06-21] MEDS: ESCITALOPRAM OXALATE (10 MG) 10 MG TABLET PO SCH (08:51)
[2024-06-21] MEDS: ATORVASTATIN 10 MG TABLET PO SCH (08:51)
[2024-06-21 16:00] VITALS: BP 127/60; TEMP 97.7; O2SAT 98
[2024-06-21 20:00] VITALS: BP 128/59; TEMP 98.1; O2SAT 98
[2024-06-22 08:56] VITALS: BP 150/85; TEMP 98.2; O2SAT 98
[2024-06-22] MEDS: GABAPENTIN 100 MG CAPSULE PO SCH (09:20)
[2024-06-22 16:00] VITALS: BP 121/63; TEMP 97.3; O2SAT 95
[2024-06-22 20:00] VITALS: BP 107/58; TEMP 97.9; O2SAT 97
[2024-06-22] MEDS: MAGNESIUM OXIDE 400 MG TABLET PO SCH (21:05)
[2024-06-23] MEDS: TEMAZEPAM 7.5 MG CAPSULE PO PRN (00:41)
[2024-06-23] MEDS: MAG HYDROX/AL HYDROX/SIMETH 30 ML UDC PO PRN (05:40)
[2024-06-23 08:00] VITALS: BP 125/65; TEMP 99; O2SAT 100
[2024-06-23 16:08] VITALS: BP 113/62; TEMP 98.3; O2SAT 98
[2024-06-23 20:00] VITALS: BP 116/52; TEMP 98.2; O2SAT 98
[2024-06-24 08:00] VITALS: BP 158/84; TEMP 98.8; O2SAT 98
[2024-06-24 15:52] VITALS: BP 114/70; TEMP 98.8; O2SAT 97
[2024-06-25] MEDS: QUETIAPINE FUMARATE 100 MG TABLET PO PRN (06:02)
[2024-06-25 08:00] VITALS: BP 125/71; TEMP 98; O2SAT 98
[2024-06-25] MEDS: QUETIAPINE FUMARATE 25 MG TABLET PO SCH (09:18)
[2024-06-25 16:00] VITALS: BP 105/58; TEMP 98; O2SAT 100
[2024-06-25 21:56] VITALS: BP 111/50; TEMP 97.7; O2SAT 95
[2024-06-26 08:00] VITALS: BP 143/74; TEMP 97.9; O2SAT 95
[2024-06-26 16:00] VITALS: BP 106/68; TEMP 97.7; O2SAT 95
[2024-06-26 20:00] VITALS: BP 98/56; TEMP 97.9; O2SAT 98
[2024-06-27] MEDS: ACETAMINOPHEN 325 MG TABLET PO PRN (05:32)
[2024-06-27 08:00] VITALS: BP 160/77; TEMP 98; O2SAT 94
[2024-06-27 10:00] VITALS: BP 115/62
[2024-06-27 16:00] VITALS: BP 113/60; TEMP 97.6; O2SAT 96
[2024-06-27 20:00] VITALS: BP 113/59; TEMP 97.8; O2SAT 98
[2024-06-28 08:00] VITALS: BP 139/79; TEMP 98.1; O2SAT 94
[2024-06-28] MEDS: QUETIAPINE FUMARATE 25 MG TABLET PO SCH (09:19)
[2024-06-28 16:00] VITALS: BP 115/62; TEMP 97.5; O2SAT 95
[2024-06-29] MEDS: QUETIAPINE FUMARATE 100 MG TABLET PO PRN (05:11)
[2024-06-29 08:00] VITALS: BP 147/69; TEMP 97.5; O2SAT 96
[2024-06-29 16:00] VITALS: BP 106/65; TEMP 97.9; O2SAT 100
[2024-06-29 20:00] VITALS: BP 87/53; TEMP 98; O2SAT 96
[2024-06-30] VITALS: BP 113/68; TEMP 97.3; O2SAT 98
[2024-06-30 08:00] VITALS: BP 119/83; TEMP 98.1; O2SAT 95
[2024-06-30 16:00] VITALS: BP 111/63; TEMP 98.1; O2SAT 96
[2024-06-30 20:55] VITALS: BP 108/61; TEMP 98.4; O2SAT 97
[2024-07-01 08:00] VITALS: BP 144/81; TEMP 98.7; O2SAT 97
[2024-07-01 16:00] VITALS: BP 100/53; TEMP 97.9; O2SAT 98
[2024-07-01 20:51] VITALS: BP 102/62; TEMP 97.3; O2SAT 96
[2024-07-02 08:00] VITALS: BP 156/74; TEMP 98.1; O2SAT 97
[2024-07-02 16:00] VITALS: BP 108/78; TEMP 98.8; O2SAT 98
[2024-07-02 20:00] VITALS: BP 111/70; TEMP 97.5; O2SAT 97
[2024-07-03 08:00] VITALS: BP 141/72; TEMP 98.7; O2SAT 98
[2024-07-03 16:00] VITALS: BP 100/74; TEMP 97.9; O2SAT 98
[2024-07-03] MEDS: QUETIAPINE FUMARATE 25 MG TABLET PO SCH (16:10)
[2024-07-03 20:00] VITALS: BP 109/69; TEMP 97.8; O2SAT 98
[2024-07-04 08:00] VITALS: BP 132/63; TEMP 97.8; O2SAT 96
[2024-07-04] MEDS: ENSURE ENLIVE 237 ML LIQUID (VANILLA) PO SCH (08:29)
[2024-07-04 16:00] VITALS: BP 135/69; TEMP 98.9; O2SAT 96
[2024-07-04 20:00] VITALS: BP 91/57; TEMP 97.8; O2SAT 97
[2024-07-05 08:00] VITALS: BP 135/71; TEMP 97.5; O2SAT 96
[2024-07-05 08:53] VITALS: BP 135/71
== END 2024-07-05 13:20 | DRG 885 ==
LOC: ER 15:58 → GPS 06-20 07:36
PROVIDERS: ADMIT Nurse Practitioner Psychiatric/Mental Health; ATTEND Internal Medicine
DX: F33.3 Major depressive disorder, recurrent, severe with psychotic symptoms (principal); R45.851 Suicidal ideations; F03.93 Unspecified dementia, unspecified severity, with mood disturbance; F03.94 Unspecified dementia, unspecified severity, with anxiety; F03.92 Unspecified dementia, unspecified severity, with psychotic disturbance; F13.20 Sedative, hypnotic or anxiolytic dependence, uncomplicated; F29 Unspecified psychosis not due to a substance or known physiological condition; E78.5 Hyperlipidemia, unspecified; I10 Essential (primary) hypertension; F39 Unspecified mood [affective] disorder; Z79.899 Other long term (current) drug therapy; G25.81 Restless legs syndrome; Z73.6 Limitation of activities due to disability; Z91.148 Patient's other noncompliance with medication regimen for other reason; F41.9 Anxiety disorder, unspecified; F60.3 Borderline personality disorder
CPT/HCPCS: 36415; 70450-TC; 80048-TC; 80053-TC; 80061-TC; 80076-TC; 81001; 82607-TC; 83735-TC; 83921; 84425; 84443-TC; 85025-TC; G0480; J1200; J1630; J2060; J3490; Q0177

== ENCOUNTER 2024-10-07 12:31 | Inpatient (IN) | payer BC, MEDICARE ==
[~2024-10-07] VITALS: Ht 165.1 cm; Wt 60.3 kg
[~2024-10-07 12:31] MED LIST changes: +GABA-532 PO; -LAMO25TA5 PO; -OLAN10TA3 PO; -ROPI0.255 PO; -ROPI0.5T4 PO; -SENN-261 PO; -TEMA15CA PO; +TOPI50TA24 PO
[2024-10-07 15:31] LABS: BASOPHILS % (AUTO) 0.5 % (0.0-2.0); EOSINOPHILS # (AUTO) 0.1 K/uL (0.0-0.7); EOSINOPHILS % (AUTO) 1.4 % (0.0-6.0); HEMATOCRIT 34 % (33-45); HEMOGLOBIN 11.2 g/dL (11.5-14.8); LYMPHOCYTES # (AUTO) 1.9 K/uL (0.8-4.8); LYMPHOCYTES % (AUTO) 20.7 % (20.0-44.0); MEAN CORPUSCULAR HEMOGLOBIN 27 PG (26.0-33.0); MEAN CORPUSCULAR HGB CONC 33 g/dl (31.0-36.0); MEAN CORPUSCULAR VOLUME 81 fL (82-100); MONOCYTES # (AUTO) 0.8 K/uL (0.1-1.30); MONOCYTES % (AUTO) 8.5 % (2.0-12.0); NEUTROPHILS # (AUTO) 6.3 K/uL (1.8-8.9); NEUTROPHILS % (AUTO) 68.9 % (43.0-81.0); PLATELET COUNT (AUTO) 204 K/uL (150-450); RED BLOOD CELL COUNT(AUTO) 4.19 MIL/uL (4.0-5.2); RED CELL DISTRIBUTION WIDTH 15.6 % (11.5-15.0); WHITE BLOOD COUNT (AUTO) 9.1 K/uL (4.3-11.0)
[2024-10-07 15:47] LABS: CALCIUM, SERUM 9.2 mg/dL (8.5-10.1); CARBON DIOXIDE 28 mmol/L (21-32); CHLORIDE 107 mmol/L (98-107); CREATININE 0.7 mg/dL (0.6-1.3); GLUCOSE 94 mg/dL (74-106); POTASSIUM 4.2 mmol/L (3.5-5.1); SODIUM SERUM 142 mmol/L (136-145); UREA NITROGEN, BLOOD 23 mg/dL (7-18)
[2024-10-07] MEDS ORDERED: HALOPERIDOL LACTATE INJ 5 MG/ML VIAL ONE (15:51)
[2024-10-07] MEDS ORDERED: ZIPR40CA2 PO (15:55)
[2024-10-07] MEDS ORDERED: ESCI10TA PO (15:55)
[2024-10-07] MEDS ORDERED: ACET325T53 PO (15:55)
[2024-10-07] MEDS ORDERED: MAGN400O6 PO (15:55)
[2024-10-07] MEDS ORDERED: TEMA30CA PO (15:55)
[2024-10-07] MEDS ORDERED: QUET100T PO (15:55)
[2024-10-07] MEDS ORDERED: MAGN400T30 PO (15:55)
[2024-10-07] MEDS ORDERED: NAPR-1009 PO (15:55)
[2024-10-07] MEDS ORDERED: DIVA500T2 PO (15:55)
[2024-10-07 16:02] LABS: APPEARANCE,URINE CLEAR (CLEAR); BILIRUBIN,URINE NEGATIVE (NEGATIVE); BLOOD, URINE NEGATIVE Ery/uL (NEGATIVE); COLOR,URINE YELLOW (YELLOW); KETONES,URINE TRACE mg/dL (NEGATIVE); LEUKOCYTE ESTERASE ,URINE NEGATIVE (NEGATIVE); NITRITE, URINE NEGATIVE (NEGATIVE); PROTEIN,URINE NEGATIVE (NEGATIVE); UGLUCOSE NEGATIVE (NEGATIVE); UROBILINOGEN,URINE 0.2 EU/dL (0.2)
[2024-10-07 16:04] LABS: ACETAMINOPHEN < 10 ug/ml (10-30); ALANINE AMINOTRANSFERASE 22 U/L (12-78); ALBUMIN 3.8 g/dL (3.4-5.0); ALCOHOL, BLOOD < 3 mg/dL (0-10); ALKALINE PHOSPHATASE 62 U/L (46-116); ASPARTATE AMINOTRANSFERASE 16 U/L (15-37); BILIRUBIN,DIRECT 0.1 mg/dL (0.0-0.2); BILIRUBIN,TOTAL 0.4 mg/dL (0.2-1.0)
[2024-10-07 16:05] LABS: SALICYLATE 1.3 mg/dL (2.8-20.0)
[2024-10-07 16:06] LABS: AMPHETAMINE, URINE NEGATIVE (NEGATIVE); BARBITURATE, URINE NEGATIVE (NEGATIVE); BENZODIAZEPINE, URINE POSITIVE (NEGATIVE); CANNABINOID, URINE NEGATIVE (NEGATIVE); COCCAINE, URINE NEGATIVE (NEGATIVE); OPIATE, URINE NEGATIVE (NEGATIVE); PHENCYCLIDINE SCREEN,URINE NEGATIVE (NEGATIVE)
[2024-10-07] MEDS: HALOPERIDOL LACTATE INJ 5 MG/ML VIAL IM ONE (16:10)
[2024-10-07 17:11] LABS: ADD URINE CULTURE NO; BACTERIA,URINE Rare /HPF (None Seen); RBC,URINE 0-2 /HPF (0-2); SQUAMOUS EPITHELIAL CELL,UR Rare /HPF (None Seen); WBC,URINE 0-2 /HPF (0-3)
[2024-10-07] MEDS ORDERED: clonazePAM 0.5 MG TABLET PO PRN (21:30)
[2024-10-07] MEDS ORDERED: MAGNESIUM HYDROXIDE 30 ML UDC PO PRN (21:30)
[2024-10-07] MEDS ORDERED: ACETAMINOPHEN 325 MG TABLET PO PRN (21:30)
[2024-10-07 21:40] VITALS: BP 148/76; TEMP 98.3; O2SAT 97
[2024-10-07] MEDS: BLOOD SUGAR DIAGNOSTIC 1 EACH STRIP IN ONE (21:52)
[2024-10-07 22:23] VITALS: BP 162/72; TEMP 97.7; O2SAT 96
[2024-10-07] MEDS: TEMAZEPAM 7.5 MG CAPSULE PO PRN (23:15)
[2024-10-08] MEDS: hydrOXYzine PAMOATE 25 MG CAPSULE PO PRN (02:38)
[2024-10-08 08:00] VITALS: BP 159/73; TEMP 98.1; O2SAT 97
[2024-10-08] MEDS: ATORVASTATIN 10 MG TABLET PO SCH (09:18)
[2024-10-08] MEDS: GABAPENTIN 100 MG CAPSULE PO SCH (09:18)
[2024-10-08] MEDS: LISINOPRIL (5MG) 5 MG TABLET PO SCH (09:19)
[2024-10-08] MEDS: ATENOLOL 50 MG TABLET PO SCH (09:21)
[2024-10-08] MEDS: TRAZODONE 50 MG TABLET PO SCH (14:30)
[2024-10-08 16:00] VITALS: BP 112/57; TEMP 98.7; O2SAT 96
[2024-10-08] MEDS: ZIPRASIDONE 20 MG CAPSULE PO SCH (16:23)
[2024-10-08] MEDS ORDERED: ACETAMINOPHEN 325 MG TABLET PO PRN (16:30)
[2024-10-08] MEDS ORDERED: MAGNESIUM HYDROXIDE 30 ML UDC PO PRN (16:30)
[2024-10-08] MEDS: MAGNESIUM OXIDE 400 MG TABLET PO SCH (18:00)
[2024-10-08] MEDS: DIVALPROEX SODIUM 500 MG TABLET.DR PO SCH (21:10)
[2024-10-08] MEDS: QUETIAPINE FUMARATE 100 MG TABLET PO PRN (21:15)
[2024-10-08 22:52] VITALS: BP 152/78; TEMP 98.6; O2SAT 94
[2024-10-09 08:00] VITALS: BP 101/55; TEMP 97.9; O2SAT 100
[2024-10-09] MEDS: ATENOLOL 25 MG TABLET PO SCH (08:46)
[2024-10-09] MEDS: ESCITALOPRAM OXALATE (10 MG) 10 MG TABLET PO SCH (08:48)
[2024-10-09 16:00] VITALS: BP 114/59; TEMP 98.8; O2SAT 98
[2024-10-09 20:10] VITALS: BP 134/73; TEMP 99; O2SAT 100
[2024-10-10 08:00] VITALS: BP 132/74; TEMP 97.9; O2SAT 95
[2024-10-10 16:00] VITALS: BP 116/62; TEMP 98.9; O2SAT 97
[2024-10-10] MEDS: MAG HYDROX/AL HYDROX/SIMETH 30 ML UDC PO PRN (18:25)
[2024-10-11 08:00] VITALS: BP 119/62; TEMP 98.1; O2SAT 98
[2024-10-11 16:00] VITALS: BP 121/65; TEMP 98.6; O2SAT 98
[2024-10-11 20:00] VITALS: BP 113/72; TEMP 98.4; O2SAT 99
[2024-10-12 08:00] VITALS: BP 127/65; TEMP 97.8; O2SAT 94
[2024-10-12] MEDS ORDERED: TEMAZEPAM 7.5 MG CAPSULE PO PRN (08:30)
[2024-10-12 16:00] VITALS: BP 123/67; TEMP 97.9; O2SAT 97
[2024-10-12 20:00] VITALS: BP 112/52; TEMP 98
[2024-10-12] MEDS: QUETIAPINE FUMARATE 100 MG TABLET PO PRN (22:27)
[2024-10-13] MEDS: TEMAZEPAM 7.5 MG CAPSULE PO PRN (02:17)
[2024-10-13 08:00] VITALS: BP 126/78; TEMP 97.9; O2SAT 97
[2024-10-13] MEDS: QUETIAPINE FUMARATE 100 MG TABLET PO PRN (08:34)
[2024-10-13] MEDS: DOCUSATE SODIUM 100 MG CAPSULE PO PRN (08:35)
[2024-10-13 16:00] VITALS: BP 146/79; TEMP 97.7; O2SAT 97
[2024-10-13 20:00] VITALS: BP 118/57; TEMP 98; O2SAT 97
[2024-10-14 00:32] VITALS: BP 118/57; TEMP 98
[2024-10-14 08:00] VITALS: BP 134/71; TEMP 97.8; O2SAT 98
[2024-10-14 16:00] VITALS: BP 131/68; TEMP 98.7; O2SAT 96
[2024-10-14 20:00] VITALS: BP 128/73; TEMP 97.7; O2SAT 98
[2024-10-15 08:00] VITALS: BP 145/75; TEMP 98; O2SAT 96
[2024-10-15 16:02] VITALS: BP 121/77; TEMP 97.8; O2SAT 97
[2024-10-15 22:15] VITALS: BP 121/77; TEMP 97.8; O2SAT 97
[2024-10-16 08:00] VITALS: BP 131/58; TEMP 98.7; O2SAT 99
[2024-10-16 16:00] VITALS: BP 108/70; TEMP 98.6; O2SAT 98
[2024-10-16 20:00] VITALS: BP 138/67; TEMP 98.8; O2SAT 96
[2024-10-17 08:00] VITALS: BP 134/71; TEMP 97.6; O2SAT 97
[2024-10-17 16:00] VITALS: BP 120/62; TEMP 98; O2SAT 97
[2024-10-17 20:00] VITALS: BP 124/69; TEMP 98.2; O2SAT 99
[2024-10-18 08:00] VITALS: BP 126/71; TEMP 98.6; O2SAT 98
[2024-10-18 16:00] VITALS: BP 166/84; TEMP 98; O2SAT 96
[2024-10-18 20:00] VITALS: BP 139/65; TEMP 98.2; O2SAT 100
[2024-10-19 08:00] VITALS: BP 150/71; TEMP 98.2; O2SAT 96
[2024-10-19 16:00] VITALS: BP 131/65; TEMP 98.1; O2SAT 98
[2024-10-19 20:14] VITALS: BP 108/53; TEMP 98.1; O2SAT 97
[2024-10-20 08:00] VITALS: BP 140/70; TEMP 97.9; O2SAT 99
[2024-10-20 16:00] VITALS: BP 111/63; TEMP 98.1; O2SAT 100
[2024-10-20 20:51] VITALS: BP 122/61; TEMP 98.1; O2SAT 100
[2024-10-21 08:00] VITALS: BP 150/83; TEMP 98; O2SAT 98
[2024-10-21 08:36] VITALS: BP 150/83
== END 2024-10-21 14:40 | DRG 885 ==
LOC: ER 12:54 → GPS 20:28
PROVIDERS: ADMIT Nurse Practitioner Psychiatric/Mental Health; ATTEND Nurse Practitioner Acute Care
DX: F33.3 Major depressive disorder, recurrent, severe with psychotic symptoms (principal); R45.851 Suicidal ideations; F29 Unspecified psychosis not due to a substance or known physiological condition; E78.5 Hyperlipidemia, unspecified; I10 Essential (primary) hypertension; F41.9 Anxiety disorder, unspecified; Z20.822 Contact with and (suspected) exposure to COVID-19; Z79.899 Other long term (current) drug therapy; F39 Unspecified mood [affective] disorder; F60.3 Borderline personality disorder
CPT/HCPCS: 36415; 80048-TC; 80076-TC; 81001; 82962-TC; 85025-TC; G0480; J1630; Q0177

== ENCOUNTER 2024-12-06 15:08 | Inpatient (IN) | payer MEDICARE, BC ==
[~2024-12-06] VITALS: Ht 160 cm; Wt 65.9 kg
[~2024-12-06 15:08] MED LIST changes: +ACET325T53 PO; +DIVA500T2 PO; +ESCI10TA PO; +MAGN400O6 PO; +MAGN400T30 PO; +NAPR-1009 PO; +QUET100T PO; +TEMA30CA PO; -TOPI50TA24 PO; +ZIPR40CA2 PO
[2024-12-06] MEDS ORDERED: oxyCODONE/APAP (5/325 MG) 1 UDTAB TABLET ONE (15:36)
[2024-12-06] MEDS: oxyCODONE/APAP (5/325 MG) 1 UDTAB TABLET PO ONE (15:41)
[2024-12-06 15:57] LABS: BASOPHILS # (AUTO) 0.1 K/uL (0.0-0.2); BASOPHILS % (AUTO) 1.6 % (0.0-2.0); EOSINOPHILS # (AUTO) 0.1 K/uL (0.0-0.7); EOSINOPHILS % (AUTO) 0.8 % (0.0-6.0); HEMATOCRIT 36 % (33-45); HEMOGLOBIN 12.1 g/dL (11.5-14.8); MEAN CORPUSCULAR HEMOGLOBIN 28 PG (26.0-33.0); MEAN CORPUSCULAR HGB CONC 33 g/dl (31.0-36.0); MEAN CORPUSCULAR VOLUME 84 fL (82-100); MONOCYTES # (AUTO) 0.5 K/uL (0.1-1.30); NEUTROPHILS # (AUTO) 5.9 K/uL (1.8-8.9); NEUTROPHILS % (AUTO) 77.6 % (43.0-81.0); PLATELET COUNT (AUTO) 234 K/uL (150-450); RED BLOOD CELL COUNT(AUTO) 4.33 MIL/uL (4.0-5.2); RED CELL DISTRIBUTION WIDTH 15.5 % (11.5-15.0); WHITE BLOOD COUNT (AUTO) 7.6 K/uL (4.3-11.0)
[2024-12-06 16:04] LABS: CARBON DIOXIDE 29 mmol/L (21-32); CHLORIDE 106 mmol/L (98-107); CREATININE 1.2 mg/dL (0.6-1.3); GLUCOSE 109 mg/dL (74-106); SODIUM SERUM 138 mmol/L (136-145); UREA NITROGEN, BLOOD 32 mg/dL (7-18)
[2024-12-06] MEDS ORDERED: LIDOCAINE 0.5% HCL 50 ML VIAL ONE (16:09)
[2024-12-06 16:11] LABS: ALANINE AMINOTRANSFERASE 34 U/L (12-78); ALBUMIN 3.4 g/dL (3.4-5.0); ALKALINE PHOSPHATASE 77 U/L (46-116); ASPARTATE AMINOTRANSFERASE 31 U/L (15-37); BILIRUBIN,DIRECT 0.1 mg/dL (0.0-0.2); BILIRUBIN,TOTAL 0.3 mg/dL (0.2-1.0); INR 1.11 (0.91-1.10); PROTHROMBIN TIME 11.3 SECS (9.2-11.1)
[2024-12-06 16:17] LABS: CALCIUM, SERUM 8.7 mg/dL (8.5-10.1)
[2024-12-06] MEDS: LIDOCAINE 1% INJ 50 ML MDV IJ ONE (16:36)
[2024-12-06] MEDS ORDERED: TDAP [DIPH/PERTUSSIS/TET] 0.5 ML VIAL IM ONE (17:10)
[2024-12-06] MEDS: TDAP [DIPH/PERTUSSIS/TET] 0.5 ML VIAL IM ONE (17:15)
[2024-12-06] MEDS: CEFAZOLIN 1 GM in IV D5W 50 ML IV ONE (17:23)
[2024-12-06] MEDS ORDERED: GABA-536 PO (17:38)
[2024-12-06] MEDS ORDERED: QUET200T5 PO (17:38)
[2024-12-06] MEDS ORDERED: ONDANSETRON HCL/PF 4 MG/2 ML VIAL IVP PRN (18:00)
[2024-12-06 21:00] VITALS: BP_SYST 125; BP_DIAS 60; BP_DIAS 62; TEMP 98.2; O2SAT 98
[2024-12-06] MEDS: ENOXAPARIN SODIUM 40 MG/0.4 ML DISP.SYRIN SQ SCH (21:00)
[2024-12-06] MEDS: HYDROCODONE/APAP 5/325MG TABLET PO PRN (22:46)
[2024-12-07] MEDS: LORAZEPAM INJ 2 MG/ML VIAL IM ONE (01:19)
[2024-12-07 07:11] LABS: BASOPHILS % (AUTO) 0.4 % (0.0-2.0); EOSINOPHILS % (AUTO) 0.3 % (0.0-6.0); HEMATOCRIT 34 % (33-45); HEMOGLOBIN 11.6 g/dL (11.5-14.8); LYMPHOCYTES # (AUTO) 2.6 K/uL (0.8-4.8); LYMPHOCYTES % (AUTO) 23.2 % (20.0-44.0); MEAN CORPUSCULAR HEMOGLOBIN 28 PG (26.0-33.0); MEAN CORPUSCULAR HGB CONC 34 g/dl (31.0-36.0); MEAN CORPUSCULAR VOLUME 83 fL (82-100); MONOCYTES # (AUTO) 1.2 K/uL (0.1-1.30); MONOCYTES % (AUTO) 10.5 % (2.0-12.0); NEUTROPHILS # (AUTO) 7.2 K/uL (1.8-8.9); NEUTROPHILS % (AUTO) 65.6 % (43.0-81.0); PLATELET COUNT (AUTO) 241 K/uL (150-450); RED BLOOD CELL COUNT(AUTO) 4.12 MIL/uL (4.0-5.2); RED CELL DISTRIBUTION WIDTH 15.4 % (11.5-15.0)
[2024-12-07 07:34] LABS: CALCIUM, SERUM 9.1 mg/dL (8.5-10.1); CREATININE 0.7 mg/dL (0.6-1.3); MAGNESIUM 2.1 mg/dL (1.8-2.4); PHOSPHORUS 2.3 mg/dL (2.5-4.9); POTASSIUM 4.3 mmol/L (3.5-5.1)
[2024-12-07 08:00] VITALS: BP 139/76; TEMP 97.9; O2SAT 98
[2024-12-07] MEDS: LORAZEPAM INJ 2 MG/ML VIAL IV STA (09:50)
[2024-12-07] MEDS: LORAZEPAM INJ 2 MG/ML VIAL IM/IV ONE (10:17)
[2024-12-07] MEDS ORDERED: TRANEXAMIC ACID 1,000 MG/10 ML VIAL ONE (10:58)
[2024-12-07] MEDS ORDERED: POLYMYXIN B SULFATE 0 UNITS ONE (10:58)
[2024-12-07] MEDS ORDERED: BUPIVACAINE 0.25% 75 MG/30 ML VIAL ONE (10:58)
[2024-12-07] MEDS ORDERED: FENTANYL PF 100MCG/2ML AMPUL ONE (11:02)
[2024-12-07] MEDS ORDERED: MORPHINE SULFATE INJ 4 MG/ML DISP.SYRIN ONE (11:03)
[2024-12-07] MEDS ORDERED: MIDAZOLAM HCL 2 MG/2ML VIAL ONE (11:03)
[2024-12-07] MEDS ORDERED: FENTANYL PF 100MCG/2ML AMPUL IV PRN ×2 (12:30)
[2024-12-07] MEDS ORDERED: ONDANSETRON HCL/PF 4 MG/2 ML VIAL IVP PRN (12:30)
[2024-12-07 16:19] VITALS: BP 139/71; TEMP 97.5; O2SAT 99
[2024-12-07] MEDS: MORPHINE SULFATE INJ 2 MG/ML DISP.SYRIN IV PRN (18:04)
[2024-12-07] MEDS: Sodium Phosphate 15 MMOL in IV NS 0.9% 245 ML IV ONE (18:06)
[2024-12-07] MEDS: ZIPRASIDONE 20 MG CAPSULE PO SCH (19:30)
[2024-12-07 20:00] VITALS: BP 172/87; TEMP 98.1; O2SAT 98
[2024-12-07] MEDS: ANCEF 1 GM/50 ML D5W IV SCH (20:07)
[2024-12-07] MEDS: MAGNESIUM OXIDE 400 MG TABLET PO SCH (20:08)
[2024-12-07] MEDS: DIVALPROEX SODIUM 500 MG TABLET.DR PO SCH (20:08)
[2024-12-07] MEDS: QUETIAPINE FUMARATE 25 MG TABLET PO SCH (20:08)
[2024-12-07] MEDS: GABAPENTIN 100 MG CAPSULE PO SCH (20:08)
[2024-12-07] MEDS: ACETAMINOPHEN 325 MG TABLET PO PRN (22:46)
[2024-12-08] MEDS: ESCITALOPRAM OXALATE (10 MG) 10 MG TABLET PO SCH (08:44)
[2024-12-08] MEDS: NAPROXEN 500 MG TABLET PO SCH (08:44)
[2024-12-08] MEDS: LISINOPRIL (5MG) 5 MG TABLET PO SCH (08:45)
[2024-12-08] MEDS: ATENOLOL 50 MG TABLET PO SCH (08:45)
[2024-12-08] MEDS: ATORVASTATIN 10 MG TABLET PO SCH (08:45)
[2024-12-08 09:05] VITALS: BP 176/88; TEMP 98.1; O2SAT 96
[2024-12-08 20:49] VITALS: BP 137/70; TEMP 98.2; O2SAT 95
[2024-12-08 20:56] VITALS: BP 137/70; TEMP 98.2; O2SAT 95
[2024-12-08] MEDS: TEMAZEPAM 15 MG CAPSULE PO PRN (21:10)
[2024-12-08 21:21] VITALS: BP 137/70; TEMP 98.2; O2SAT 95
[2024-12-09] MEDS ORDERED: Hydrocodone/Apap 5/325MG PO (11:58)
[2024-12-09] MEDS ORDERED: ENOX40DI SQ (11:58)
[2024-12-09 20:00] VITALS: BP 119/61; TEMP 98.1; O2SAT 100
[2024-12-10 07:30] VITALS: BP 173/100; TEMP 97.6; O2SAT 97
[2024-12-10 10:00] VITALS: BP 156/73
[2024-12-10 17:24] LABS: BASOPHILS % (AUTO) 0.4 % (0.0-2.0); EOSINOPHILS # (AUTO) 0.1 K/uL (0.0-0.7); EOSINOPHILS % (AUTO) 1.2 % (0.0-6.0); HEMATOCRIT 32 % (33-45); HEMOGLOBIN 10.7 g/dL (11.5-14.8); LYMPHOCYTES # (AUTO) 2.1 K/uL (0.8-4.8); LYMPHOCYTES % (AUTO) 23.8 % (20.0-44.0); MEAN CORPUSCULAR HEMOGLOBIN 28 PG (26.0-33.0); MEAN CORPUSCULAR HGB CONC 33 g/dl (31.0-36.0); MEAN CORPUSCULAR VOLUME 83 fL (82-100); MONOCYTES % (AUTO) 11.2 % (2.0-12.0); NEUTROPHILS # (AUTO) 5.7 K/uL (1.8-8.9); NEUTROPHILS % (AUTO) 63.4 % (43.0-81.0); PLATELET COUNT (AUTO) 273 K/uL (150-450); RED BLOOD CELL COUNT(AUTO) 3.87 MIL/uL (4.0-5.2); RED CELL DISTRIBUTION WIDTH 15.4 % (11.5-15.0)
[2024-12-10 17:39] LABS: CALCIUM, SERUM 9.4 mg/dL (8.5-10.1); CREATININE 0.7 mg/dL (0.6-1.3); POTASSIUM 3.8 mmol/L (3.5-5.1)
[2024-12-10 20:00] VITALS: BP 148/68; TEMP 97.9; O2SAT 100
[2024-12-10 21:12] VITALS: BP 148/68; TEMP 97.9; O2SAT 100
[2024-12-11 02:33] LABS: APPEARANCE,URINE CLEAR (CLEAR); BILIRUBIN,URINE NEGATIVE (NEGATIVE); BLOOD, URINE NEGATIVE Ery/uL (NEGATIVE); COLOR,URINE YELLOW (YELLOW); KETONES,URINE TRACE mg/dL (NEGATIVE); LEUKOCYTE ESTERASE ,URINE TRACE (NEGATIVE); NITRITE, URINE NEGATIVE (NEGATIVE); PH,URINE 6.5 (5.0-8.0); PROTEIN,URINE NEGATIVE (NEGATIVE); UGLUCOSE TRACE mg/dL (NEGATIVE)
[2024-12-11 02:34] LABS: ADD URINE CULTURE NO; BACTERIA,URINE Rare /HPF (None Seen); SQUAMOUS EPITHELIAL CELL,UR Few /HPF (None Seen)
[2024-12-11 02:46] LABS: AMPHETAMINE, URINE NEGATIVE (NEGATIVE); BARBITURATE, URINE NEGATIVE (NEGATIVE); CANNABINOID, URINE NEGATIVE (NEGATIVE); COCCAINE, URINE NEGATIVE (NEGATIVE); OPIATE, URINE NEGATIVE (NEGATIVE); PHENCYCLIDINE SCREEN,URINE NEGATIVE (NEGATIVE)
[2024-12-11 02:50] LABS: BENZODIAZEPINE, URINE POSITIVE (NEGATIVE)
[2024-12-11 07:30] VITALS: BP 164/91; TEMP 97.7; O2SAT 98
[2024-12-11 16:00] VITALS: BP 161/84; TEMP 98.1; O2SAT 95
[2024-12-11] MEDS: K PHOS NEUTRAL 250 MG TABLET PO ONE (16:33)
[2024-12-11 20:00] VITALS: BP 146/72; TEMP 98.1; O2SAT 97
[2024-12-12 07:30] VITALS: BP 169/92; TEMP 97.9; O2SAT 97
[2024-12-12 08:21] LABS: CALCIUM, SERUM 9.3 mg/dL (8.5-10.1); CARBON DIOXIDE 27 mmol/L (21-32); CHLORIDE 107 mmol/L (98-107); CREATININE 0.8 mg/dL (0.6-1.3); GLUCOSE 111 mg/dL (74-106); PHOSPHORUS 3.7 mg/dL (2.5-4.9); POTASSIUM 4.1 mmol/L (3.5-5.1); SODIUM SERUM 141 mmol/L (136-145); UREA NITROGEN, BLOOD 25 mg/dL (7-18)
[2024-12-12] MEDS: DOCUSATE SODIUM 100 MG CAPSULE PO PRN (19:02)
[2024-12-13 07:00] VITALS: BP 137/73; TEMP 97.4; O2SAT 98
[2024-12-13 07:17] LABS: CALCIUM, SERUM 9.3 mg/dL (8.5-10.1); CREATININE 0.7 mg/dL (0.6-1.3); POTASSIUM 3.9 mmol/L (3.5-5.1)
[2024-12-13 08:25] VITALS: BP 137/73
[2024-12-13 09:23] VITALS: TEMP 97.9
[2024-12-14] MEDS ORDERED: LORA-258 PO ×2 (08:23→08:24)
== END 2024-12-13 14:30 | disposition home health service (06) | DRG 511 ==
LOC: ER 15:10 → MED 20:11
PROVIDERS: ADMIT Nurse Practitioner Acute Care; ATTEND Nurse Practitioner Acute Care
PROC: 0HQEXZZ Repair Left Lower Arm Skin, External Approach (ICD-10-PCS; 2024-12-06)
PROC: 0PSJ04Z Reposition Left Radius with Internal Fixation Device, Open Approach (ICD-10-PCS; principal; 2024-12-07 11:00)
DX: S52.502B Unspecified fracture of the lower end of left radius, initial encounter for open fracture type I or II (principal); D68.59 Other primary thrombophilia; W01.0XXA Fall on same level from slipping, tripping and stumbling without subsequent striking against object, initial encounter; Y92.480 Sidewalk as the place of occurrence of the external cause; Z74.09 Other reduced mobility; Z20.822 Contact with and (suspected) exposure to COVID-19; I10 Essential (primary) hypertension; Z79.899 Other long term (current) drug therapy; E78.5 Hyperlipidemia, unspecified; F41.9 Anxiety disorder, unspecified; F32.A Depression, unspecified; S52.612B Displaced fracture of left ulna styloid process, initial encounter for open fracture type I or II; Z87.891 Personal history of nicotine dependence
CPT/HCPCS: 36415; 71045-TC; 73100-TC; 73130-TC; 80048-TC; 80076-TC; 81001; 83735-TC; 84100-TC; 85025-TC; 85730-TC; 86850-TC; 87081-TC; 90715; 97110-TC; 97116-TC; 97530-TC; 97535-TC; A4217; A4223; A6253; A9563; C1713; G0378; J0690; J1650; J2060; J2250; J2270; J2405; J2704; J2765; J3010; J3490; J7030; J7040; J7050; J7060

== ENCOUNTER 2024-12-14 06:44 | Emergency (ER) | payer MEDICARE, BC ==
[~2024-12-14] VITALS: Ht 165.1 cm; Wt 61.2 kg
[~2024-12-14 06:44] MED LIST changes: -ACET325T53 PO; +ENOX40DI SQ; +GABA-536 PO; +Hydrocodone/Apap 5/325MG PO; -MAGN400O6 PO; +QUET200T5 PO
[2024-12-14] MEDS ORDERED: LORA-258 PO ×2 (08:23→08:24)
[2024-12-14 09:16] VITALS: BP 135/65; TEMP 98.5; O2SAT 99
[2024-12-15] MEDS ORDERED: GABA300C PO (18:21)
[2024-12-15] MEDS ORDERED: QUET200T PO (18:21)
[2024-12-17] MEDS ORDERED: LISI-768 PO (10:08)
== END 2024-12-14 09:17 | disposition home or self-care (01) ==
LOC: ER 06:54
DX: S62.102A Fracture of unspecified carpal bone, left wrist, initial encounter for closed fracture (principal); F32.A Depression, unspecified; F41.9 Anxiety disorder, unspecified; I10 Essential (primary) hypertension; Z79.899 Other long term (current) drug therapy; X58.XXXA Exposure to other specified factors, initial encounter; Y93.89 Activity, other specified; Y92.89 Other specified places as the place of occurrence of the external cause; Y99.8 Other external cause status

== ENCOUNTER 2024-12-15 16:12 | Inpatient (IN) | payer MEDICARE, BC ==
[~2024-12-15] VITALS: Ht 165.1 cm; Wt 63.5 kg
[~2024-12-15 16:12] MED LIST changes: +LORA-258 PO
[2024-12-15 17:22] LABS: BASOPHILS % (AUTO) 0.5 % (0.0-2.0); EOSINOPHILS # (AUTO) 0.1 K/uL (0.0-0.7); EOSINOPHILS % (AUTO) 1.3 % (0.0-6.0); HEMATOCRIT 32 % (33-45); HEMOGLOBIN 10.4 g/dL (11.5-14.8); LYMPHOCYTES % (AUTO) 24.9 % (20.0-44.0); MEAN CORPUSCULAR HEMOGLOBIN 28 PG (26.0-33.0); MEAN CORPUSCULAR HGB CONC 33 g/dl (31.0-36.0); MEAN CORPUSCULAR VOLUME 85 fL (82-100); MONOCYTES # (AUTO) 0.8 K/uL (0.1-1.30); MONOCYTES % (AUTO) 10.4 % (2.0-12.0); NEUTROPHILS # (AUTO) 5.1 K/uL (1.8-8.9); NEUTROPHILS % (AUTO) 62.9 % (43.0-81.0); PLATELET COUNT (AUTO) 327 K/uL (150-450); RED BLOOD CELL COUNT(AUTO) 3.73 MIL/uL (4.0-5.2); RED CELL DISTRIBUTION WIDTH 15.5 % (11.5-15.0); WHITE BLOOD COUNT (AUTO) 8.1 K/uL (4.3-11.0)
[2024-12-15 17:36] LABS: ALBUMIN 3.4 g/dL (3.4-5.0); BILIRUBIN,DIRECT 0.1 mg/dL (0.0-0.2); BILIRUBIN,TOTAL 0.6 mg/dL (0.2-1.0); CALCIUM, SERUM 9.7 mg/dL (8.5-10.1); CREATININE 0.6 mg/dL (0.6-1.3); POTASSIUM 4.1 mmol/L (3.5-5.1); TOTAL PROTEIN, SERUM 6.3 g/dL (6.4-8.2)
[2024-12-15 17:47] LABS: APPEARANCE,URINE CLEAR (CLEAR); BILIRUBIN,URINE NEGATIVE (NEGATIVE); BLOOD, URINE NEGATIVE Ery/uL (NEGATIVE); COLOR,URINE YELLOW (YELLOW); KETONES,URINE 1+ mg/dL (NEGATIVE); LEUKOCYTE ESTERASE ,URINE NEGATIVE (NEGATIVE); NITRITE, URINE NEGATIVE (NEGATIVE); PH,URINE 6.5 (5.0-8.0); PROTEIN,URINE NEGATIVE (NEGATIVE); UGLUCOSE NEGATIVE (NEGATIVE)
[2024-12-15] MEDS ORDERED: ACETAMINOPHEN 325 MG TABLET ONE (17:52)
[2024-12-15] MEDS ORDERED: LORAZEPAM 0.5 MG TABLET ONE (17:52)
[2024-12-15] MEDS: LORAZEPAM 1 MG TABLET PO ONE (18:01)
[2024-12-15] MEDS: ACETAMINOPHEN 325 MG TABLET PO ONE (18:02)
[2024-12-15] MEDS ORDERED: GABA300C PO (18:21)
[2024-12-15] MEDS ORDERED: QUET200T PO (18:21)
[2024-12-15 18:49] LABS: ADD URINE CULTURE NO; BACTERIA,URINE None seen /HPF (None Seen); MUCUS,URINE Many /LPF (None Seen); RBC,URINE 0-2 /HPF (0-2); WBC,URINE 0-2 /HPF (0-3)
[2024-12-15 20:00] VITALS: O2SAT 99
[2024-12-15] MEDS ORDERED: Z GUARD REMEDY 4 OZ OINT TP PRN (20:30)
[2024-12-15] MEDS ORDERED: ONDANSETRON HCL/PF 4 MG/2 ML VIAL IVP PRN (20:30)
[2024-12-15] MEDS ORDERED: MAG HYDROX/AL HYDROX/SIMETH 30 ML UDC PO PRN (20:30)
[2024-12-15] MEDS ORDERED: DOCUSATE SODIUM 100 MG CAPSULE PO PRN (20:30)
[2024-12-15] MEDS ORDERED: MAGNESIUM HYDROXIDE 30 ML UDC PO PRN (20:30)
[2024-12-15] MEDS: GABAPENTIN 300 MG CAPSULE PO SCH (21:20)
[2024-12-15] MEDS: DIVALPROEX SODIUM 500 MG TABLET.DR PO SCH (21:20)
[2024-12-15] MEDS: NAPROXEN 500 MG TABLET PO SCH (21:20)
[2024-12-15] MEDS: ENOXAPARIN SODIUM 40 MG/0.4 ML DISP.SYRIN SQ SCH (21:29)
[2024-12-15] MEDS: ZOLPIDEM TARTRATE 5 MG TABLET PO PRN (21:29)
[2024-12-15] MEDS: ZIPRASIDONE 20 MG CAPSULE PO SCH (21:32)
[2024-12-15] MEDS: QUETIAPINE FUMARATE 100 MG TABLET PO SCH (21:32)
[2024-12-16] MEDS: TRAMADOL HCL 50 MG TABLET PO PRN (05:48)
[2024-12-16] MEDS: PANTOPRAZOLE 40 MG TABLET.DR PO SCH (08:05)
[2024-12-16] MEDS: ESCITALOPRAM OXALATE (10 MG) 10 MG TABLET PO SCH (08:08)
[2024-12-16] MEDS: ATORVASTATIN 10 MG TABLET PO SCH (08:08)
[2024-12-16] MEDS: LISINOPRIL (5MG) 5 MG TABLET PO SCH (08:17)
[2024-12-16] MEDS: ATENOLOL 50 MG TABLET PO SCH (08:17)
[2024-12-16 08:55] VITALS: BP 170/76; TEMP 97.7; O2SAT 98
[2024-12-16] MEDS ORDERED: hydrALAZINE HCL IV 20 MG VIAL IV PRN (11:00)
[2024-12-16] MEDS: LISINOPRIL (5MG) 5 MG TABLET PO ONE (11:06)
[2024-12-16 14:58] LABS: BASOPHILS # (AUTO) 0.1 K/uL (0.0-0.2); BASOPHILS % (AUTO) 1.2 % (0.0-2.0); EOSINOPHILS # (AUTO) 0.1 K/uL (0.0-0.7); EOSINOPHILS % (AUTO) 2.5 % (0.0-6.0); HEMATOCRIT 28 % (33-45); HEMOGLOBIN 9.3 g/dL (11.5-14.8); LYMPHOCYTES # (AUTO) 1.9 K/uL (0.8-4.8); LYMPHOCYTES % (AUTO) 35.1 % (20.0-44.0); MEAN CORPUSCULAR HEMOGLOBIN 29 PG (26.0-33.0); MEAN CORPUSCULAR HGB CONC 33 g/dl (31.0-36.0); MEAN CORPUSCULAR VOLUME 85 fL (82-100); MONOCYTES # (AUTO) 0.5 K/uL (0.1-1.30); MONOCYTES % (AUTO) 9.4 % (2.0-12.0); NEUTROPHILS # (AUTO) 2.8 K/uL (1.8-8.9); NEUTROPHILS % (AUTO) 51.8 % (43.0-81.0); PLATELET COUNT (AUTO) 323 K/uL (150-450); RED BLOOD CELL COUNT(AUTO) 3.25 MIL/uL (4.0-5.2); RED CELL DISTRIBUTION WIDTH 15.5 % (11.5-15.0); WHITE BLOOD COUNT (AUTO) 5.4 K/uL (4.3-11.0)
[2024-12-16 15:19] LABS: CALCIUM, SERUM 8.7 mg/dL (8.5-10.1); CREATININE 0.8 mg/dL (0.6-1.3); MAGNESIUM 2.2 mg/dL (1.8-2.4); PHOSPHORUS 3.8 mg/dL (2.5-4.9); POTASSIUM 3.9 mmol/L (3.5-5.1)
[2024-12-16 15:28] LABS: THYROID STIMULATING HORMONE 1.55 uIU/mL (0.358-3.74)
[2024-12-16 16:21] VITALS: BP 79/46; TEMP 98.2; O2SAT 96
[2024-12-16] MEDS: MAGNESIUM OXIDE 400 MG TABLET PO SCH (17:50)
[2024-12-16 20:00] VITALS: BP 104/56; TEMP 97.7; O2SAT 96
[2024-12-17] MEDS: LORAZEPAM 0.5 MG TABLET PO PRN (00:32)
[2024-12-17 07:36] LABS: BASOPHILS # (AUTO) 0.1 K/uL (0.0-0.2); BASOPHILS % (AUTO) 0.7 % (0.0-2.0); EOSINOPHILS # (AUTO) 0.1 K/uL (0.0-0.7); EOSINOPHILS % (AUTO) 0.9 % (0.0-6.0); HEMATOCRIT 34 % (33-45); LYMPHOCYTES # (AUTO) 1.8 K/uL (0.8-4.8); LYMPHOCYTES % (AUTO) 18.2 % (20.0-44.0); MEAN CORPUSCULAR HEMOGLOBIN 28 PG (26.0-33.0); MEAN CORPUSCULAR HGB CONC 33 g/dl (31.0-36.0); MEAN CORPUSCULAR VOLUME 84 fL (82-100); MONOCYTES # (AUTO) 0.9 K/uL (0.1-1.30); MONOCYTES % (AUTO) 9.1 % (2.0-12.0); NEUTROPHILS # (AUTO) 6.8 K/uL (1.8-8.9); NEUTROPHILS % (AUTO) 71.1 % (43.0-81.0); PLATELET COUNT (AUTO) 415 K/uL (150-450); RED BLOOD CELL COUNT(AUTO) 3.97 MIL/uL (4.0-5.2); RED CELL DISTRIBUTION WIDTH 15.6 % (11.5-15.0); WHITE BLOOD COUNT (AUTO) 9.6 K/uL (4.3-11.0)
[2024-12-17 07:49] LABS: CALCIUM, SERUM 9.2 mg/dL (8.5-10.1); CREATININE 0.8 mg/dL (0.6-1.3); MAGNESIUM 2.2 mg/dL (1.8-2.4); PHOSPHORUS 3.4 mg/dL (2.5-4.9); POTASSIUM 4.6 mmol/L (3.5-5.1)
[2024-12-17 08:00] VITALS: BP 174/79; TEMP 97.3; O2SAT 98
[2024-12-17] MEDS: LISINOPRIL (5MG) 5 MG TABLET PO SCH (08:17)
[2024-12-17] MEDS ORDERED: LISI-768 PO (10:08)
[2024-12-17 16:00] VITALS: BP 116/62; TEMP 97.7; O2SAT 97
[2024-12-17 20:00] VITALS: BP 102/52; TEMP 97.3; O2SAT 98
[2024-12-17] MEDS: ACETAMINOPHEN 325 MG TABLET PO PRN (23:34)
[2024-12-18 08:11] VITALS: BP 163/79
== END 2024-12-18 11:07 | disposition home health service (06) | DRG 556 ==
LOC: ER 16:15 → MED 18:19
PROVIDERS: ADMIT Nurse Practitioner Family; ATTEND Student in an Organized Health Care Education/Training Program
DX: M25.532 Pain in left wrist (principal); F41.9 Anxiety disorder, unspecified; E78.5 Hyperlipidemia, unspecified; D64.9 Anemia, unspecified; I10 Essential (primary) hypertension; F39 Unspecified mood [affective] disorder; Z20.822 Contact with and (suspected) exposure to COVID-19; Z87.81 Personal history of (healed) traumatic fracture; Z98.890 Other specified postprocedural states; Z79.01 Long term (current) use of anticoagulants; Z79.899 Other long term (current) drug therapy; R79.89 Other specified abnormal findings of blood chemistry; G89.29 Other chronic pain; F32.A Depression, unspecified; R54 Age-related physical debility; R60.9 Edema, unspecified; Z91.198 Patient's noncompliance with other medical treatment and regimen for other reason
CPT/HCPCS: 36415; 73090-TC; 73110; 73564-TC; 80048-TC; 80076-TC; 81001; 83735-TC; 84100-TC; 84443-TC; 85025-TC; 87081-TC; 97112-TC; 97116-TC; 97530-TC; 97535-TC; G0378; J1650

== ENCOUNTER 2024-12-19 15:40 | Inpatient (IN) | payer MEDICARE, BC ==
[~2024-12-19] VITALS: Ht 170.2 cm; Wt 63.5 kg
[~2024-12-19 15:40] MED LIST changes: -ENOX40DI SQ; -GABA-532 PO; -GABA-536 PO; +GABA300C PO; -Hydrocodone/Apap 5/325MG PO; -QUET100T PO; +QUET200T PO; -QUET200T5 PO; -TEMA30CA PO
[2024-12-19 16:15] LABS: BASOPHILS # (AUTO) 0.1 K/uL (0.0-0.2); BASOPHILS % (AUTO) 0.6 % (0.0-2.0); EOSINOPHILS # (AUTO) 0.1 K/uL (0.0-0.7); EOSINOPHILS % (AUTO) 0.7 % (0.0-6.0); HEMATOCRIT 33 % (33-45); LYMPHOCYTES # (AUTO) 1.6 K/uL (0.8-4.8); LYMPHOCYTES % (AUTO) 20.1 % (20.0-44.0); MEAN CORPUSCULAR HEMOGLOBIN 28 PG (26.0-33.0); MEAN CORPUSCULAR HGB CONC 33 g/dl (31.0-36.0); MEAN CORPUSCULAR VOLUME 85 fL (82-100); MONOCYTES # (AUTO) 0.8 K/uL (0.1-1.30); MONOCYTES % (AUTO) 10.3 % (2.0-12.0); NEUTROPHILS # (AUTO) 5.5 K/uL (1.8-8.9); NEUTROPHILS % (AUTO) 68.3 % (43.0-81.0); PLATELET COUNT (AUTO) 384 K/uL (150-450); RED BLOOD CELL COUNT(AUTO) 3.91 MIL/uL (4.0-5.2); RED CELL DISTRIBUTION WIDTH 15.6 % (11.5-15.0)
[2024-12-19 16:29] LABS: SERUM AMMONIA 2 umol/L (11-32)
[2024-12-19 16:33] LABS: ALANINE AMINOTRANSFERASE 27 U/L (12-78); ALBUMIN 3.8 g/dL (3.4-5.0); ALKALINE PHOSPHATASE 86 U/L (46-116); ASPARTATE AMINOTRANSFERASE 19 U/L (15-37); BILIRUBIN,DIRECT 0.1 mg/dL (0.0-0.2); BILIRUBIN,TOTAL 0.4 mg/dL (0.2-1.0); CALCIUM, SERUM 9.7 mg/dL (8.5-10.1); CARBON DIOXIDE 28 mmol/L (21-32); CHLORIDE 106 mmol/L (98-107); CREATININE 0.6 mg/dL (0.6-1.3); GLUCOSE 127 mg/dL (74-106); POTASSIUM 4.2 mmol/L (3.5-5.1); SODIUM SERUM 141 mmol/L (136-145); TOTAL PROTEIN, SERUM 6.7 g/dL (6.4-8.2); UREA NITROGEN, BLOOD 35 mg/dL (7-18)
[2024-12-19 16:34] LABS: ACETAMINOPHEN <10 ug/ml (10-30); ALCOHOL, BLOOD < 3 mg/dL (0-10); SALICYLATE 0.8 mg/dL (2.8-20.0)
[2024-12-19] MEDS ORDERED: LORAZEPAM INJ 2 MG/ML VIAL ONE ×2 (16:48→18:25)
[2024-12-19] MEDS ORDERED: OLANZAPINE 10 MG VIAL IM ONE (16:48)
[2024-12-19 16:54] LABS: AMPHETAMINE, URINE NEGATIVE (NEGATIVE); BARBITURATE, URINE NEGATIVE (NEGATIVE); BENZODIAZEPINE, URINE NEGATIVE (NEGATIVE); CANNABINOID, URINE NEGATIVE (NEGATIVE); COCCAINE, URINE NEGATIVE (NEGATIVE); OPIATE, URINE NEGATIVE (NEGATIVE); PHENCYCLIDINE SCREEN,URINE NEGATIVE (NEGATIVE)
[2024-12-19] MEDS: LORAZEPAM INJ 2 MG/ML VIAL IM ONE ×2 (16:55→18:34)
[2024-12-19] MEDS: OLANZAPINE 10 MG VIAL IM ONE (16:55)
[2024-12-19 17:45] LABS: APPEARANCE,URINE CLEAR (CLEAR); BILIRUBIN,URINE NEGATIVE (NEGATIVE); BLOOD, URINE NEGATIVE Ery/uL (NEGATIVE); COLOR,URINE YELLOW (YELLOW); KETONES,URINE TRACE mg/dL (NEGATIVE); LEUKOCYTE ESTERASE ,URINE NEGATIVE (NEGATIVE); NITRITE, URINE NEGATIVE (NEGATIVE); PROTEIN,URINE NEGATIVE (NEGATIVE); UGLUCOSE NEGATIVE (NEGATIVE)
[2024-12-19] MEDS ORDERED: diphenhydrAMINE HCL 50 MG/ML VIAL ONE (19:11)
[2024-12-19] MEDS: diphenhydrAMINE HCL 50 MG/ML VIAL IM ONE (19:13)
[2024-12-19 19:19] LABS: ADD URINE CULTURE NO; BACTERIA,URINE Few /HPF (None Seen); MUCUS,URINE Moderate /LPF (None Seen); RBC,URINE 0-2 /HPF (0-2); SQUAMOUS EPITHELIAL CELL,UR Few /HPF (None Seen)
[2024-12-19 22:45] VITALS: BP 165/105; TEMP 98.2; O2SAT 99
[2024-12-19] MEDS ORDERED: MAG HYDROX/AL HYDROX/SIMETH 30 ML UDC PO PRN (23:30)
[2024-12-19] MEDS ORDERED: MAGNESIUM HYDROXIDE 30 ML UDC PO PRN (23:30)
[2024-12-19] MEDS: BLOOD SUGAR DIAGNOSTIC 1 EACH STRIP IN ONE (23:52)
[2024-12-19] MEDS: ZOLPIDEM TARTRATE 5 MG TABLET PO PRN (23:54)
[2024-12-20] MEDS: ACETAMINOPHEN 325 MG TABLET PO PRN (02:41)
[2024-12-20] MEDS: OLANZAPINE 10 MG VIAL IM ONE ×2 (04:12→09:36)
[2024-12-20 08:00] VITALS: BP 159/90; TEMP 97.9; O2SAT 99
[2024-12-20] MEDS: GABAPENTIN 300 MG CAPSULE PO SCH (08:47)
[2024-12-20] MEDS: ATORVASTATIN 10 MG TABLET PO SCH (08:47)
[2024-12-20] MEDS: LISINOPRIL (5MG) 5 MG TABLET PO SCH (08:48)
[2024-12-20] MEDS: ATENOLOL 50 MG TABLET PO SCH (08:54)
[2024-12-20] MEDS: ZIPRASIDONE 20 MG CAPSULE PO SCH (14:01)
[2024-12-20] MEDS: busPIRone 5 MG TABLET PO SCH (14:01)
[2024-12-20] MEDS: DIVALPROEX SODIUM 250 MG TABLET.DR PO SCH (14:02)
[2024-12-20 16:00] VITALS: BP 161/95; TEMP 97.9; O2SAT 99
[2024-12-20 18:52] VITALS: BP 112/57
[2024-12-20 20:26] VITALS: BP 108/54; TEMP 97.7; O2SAT 100
[2024-12-21] MEDS: ZOLPIDEM TARTRATE 5 MG TABLET PO PRN (02:32)
[2024-12-21 07:13] LABS: BASOPHILS # (AUTO) 0.1 K/uL (0.0-0.2); BASOPHILS % (AUTO) 0.8 % (0.0-2.0); EOSINOPHILS # (AUTO) 0.1 K/uL (0.0-0.7); EOSINOPHILS % (AUTO) 0.9 % (0.0-6.0); HEMATOCRIT 36 % (33-45); HEMOGLOBIN 11.6 g/dL (11.5-14.8); LYMPHOCYTES # (AUTO) 1.6 K/uL (0.8-4.8); LYMPHOCYTES % (AUTO) 22.8 % (20.0-44.0); MEAN CORPUSCULAR HEMOGLOBIN 28 PG (26.0-33.0); MEAN CORPUSCULAR HGB CONC 33 g/dl (31.0-36.0); MEAN CORPUSCULAR VOLUME 86 fL (82-100); MONOCYTES # (AUTO) 0.8 K/uL (0.1-1.30); NEUTROPHILS # (AUTO) 4.7 K/uL (1.8-8.9); NEUTROPHILS % (AUTO) 64.5 % (43.0-81.0); PLATELET COUNT (AUTO) 418 K/uL (150-450); RED BLOOD CELL COUNT(AUTO) 4.14 MIL/uL (4.0-5.2); RED CELL DISTRIBUTION WIDTH 16.1 % (11.5-15.0); WHITE BLOOD COUNT (AUTO) 7.2 K/uL (4.3-11.0)
[2024-12-21 07:30] LABS: CALCIUM, SERUM 9.5 mg/dL (8.5-10.1); CREATININE 0.7 mg/dL (0.6-1.3); POTASSIUM 4.2 mmol/L (3.5-5.1)
[2024-12-21 07:51] LABS: CREATININE 0.7 mg/dL (0.6-1.3)
[2024-12-21 08:00] VITALS: BP 172/82; TEMP 98; O2SAT 100
[2024-12-21] MEDS: ATENOLOL 25 MG TABLET PO SCH (08:23)
[2024-12-21 10:39] VITALS: BP 154/85; TEMP 98.2; O2SAT 98
[2024-12-21 16:00] VITALS: BP 126/65; TEMP 98.6; O2SAT 98
[2024-12-21 20:51] VITALS: BP 119/64; TEMP 98.6; O2SAT 99
[2024-12-21] MEDS: hydrOXYzine PAMOATE 25 MG CAPSULE PO ONE (23:47)
[2024-12-22 02:30] VITALS: BP 144/74; TEMP 97.9; O2SAT 98
[2024-12-22] MEDS ORDERED: diphenhydrAMINE HCL 50 MG/ML VIAL IV ONE (02:30)
[2024-12-22] MEDS: diphenhydrAMINE HCL 50 MG/ML VIAL IM ONE (02:44)
[2024-12-22] MEDS: HALOPERIDOL LACTATE INJ 5 MG/ML VIAL IM ONE (02:44)
[2024-12-22 08:00] VITALS: BP 133/88; TEMP 98.4; O2SAT 97
[2024-12-22 15:53] VITALS: BP 122/77; TEMP 97.5; O2SAT 100
[2024-12-23 08:00] VITALS: BP 101/62; TEMP 97.8; O2SAT 98
[2024-12-23] MEDS: hydrOXYzine PAMOATE 25 MG CAPSULE PO PRN (09:25)
[2024-12-23 15:55] VITALS: BP 109/65; TEMP 98; O2SAT 97
[2024-12-23] MEDS: busPIRone 5 MG TABLET PO SCH (16:20)
[2024-12-23] MEDS: ZIPRASIDONE 20 MG CAPSULE PO SCH (16:20)
[2024-12-23] MEDS: PROPRANOLOL HCL 40 MG TABLET PO SCH (16:21)
[2024-12-23 19:54] VITALS: BP 101/65; TEMP 98.1; O2SAT 99
[2024-12-24 08:00] VITALS: BP 150/92; TEMP 98.7; O2SAT 98
[2024-12-24] MEDS ORDERED: PROPRANOLOL HCL 40 MG TABLET PO SCH (09:00)
[2024-12-24] MEDS: DIVALPROEX SODIUM 250 MG TABLET.DR PO SCH ×2 (13:02→20:33)
[2024-12-24 16:00] VITALS: BP 154/82; TEMP 98.7; O2SAT 98
[2024-12-24 20:47] VITALS: BP 112/65; TEMP 97.8; O2SAT 100
[2024-12-24 23:00] VITALS: BP 128/78; TEMP 97.8; O2SAT 98
[2024-12-25 08:00] VITALS: BP 146/84; TEMP 97.9; O2SAT 99
[2024-12-25] MEDS: busPIRone 5 MG TABLET PO SCH (13:14)
[2024-12-25 16:00] VITALS: BP 155/86; TEMP 97.8; O2SAT 97
[2024-12-25] MEDS: ZIPRASIDONE 20 MG CAPSULE PO SCH (17:11)
[2024-12-25 20:09] VITALS: BP 121/72; TEMP 97.9; O2SAT 96
[2024-12-26 08:00] VITALS: BP 134/87; TEMP 97.9; O2SAT 96
[2024-12-26 16:00] VITALS: BP 123/78; TEMP 97.9; O2SAT 98
[2024-12-26 20:00] VITALS: BP 98/58; TEMP 97.9; O2SAT 98
[2024-12-27 08:00] VITALS: BP 129/76; TEMP 97.7; O2SAT 96
[2024-12-27 13:00] VITALS: BP 150/78; TEMP 98.2; O2SAT 98
[2024-12-27] MEDS ORDERED: ZOLPIDEM TARTRATE 5 MG TABLET PO PRN (15:00)
[2024-12-27 16:00] VITALS: BP 159/92; TEMP 97.8; O2SAT 96
[2024-12-27 20:15] VITALS: BP 123/61; TEMP 97.8; O2SAT 98
[2024-12-27] MEDS: ZIPRASIDONE 20 MG CAPSULE PO SCH (20:57)
[2024-12-27] MEDS: ZOLPIDEM TARTRATE 5 MG TABLET PO PRN (22:15)
[2024-12-28 08:00] VITALS: BP 167/90; TEMP 98; O2SAT 99
[2024-12-28 16:00] VITALS: BP 147/86; TEMP 98; O2SAT 97
[2024-12-28 20:12] VITALS: BP 160/87; TEMP 98.2; O2SAT 98
[2024-12-29 08:00] VITALS: BP 134/89; TEMP 97.8; O2SAT 96
[2024-12-29] MEDS: busPIRone 5 MG TABLET PO SCH (08:24)
[2024-12-29] MEDS: GLUCERNA SHAKE 237 ML CAN PO SCH (08:25)
[2024-12-29] MEDS: PROPRANOLOL HCL 40 MG TABLET PO SCH (12:56)
[2024-12-29 16:00] VITALS: BP 144/65; TEMP 98; O2SAT 97
[2024-12-29 21:06] VITALS: BP 142/74; TEMP 97.9; O2SAT 97
[2024-12-30 08:00] VITALS: BP 156/89; TEMP 98; O2SAT 98
[2024-12-30 16:00] VITALS: BP 131/60; TEMP 97.7; O2SAT 100
[2024-12-30 20:11] VITALS: BP 123/51; TEMP 97.9; O2SAT 97
[2024-12-31 08:00] VITALS: BP 174/94; TEMP 97.7; O2SAT 99
[2024-12-31 16:00] VITALS: BP 166/92; TEMP 97.9; O2SAT 97
[2024-12-31 20:19] VITALS: BP 105/58; TEMP 98.2; O2SAT 100
[2025-01-01 08:00] VITALS: BP 156/83; TEMP 98.7; O2SAT 98
[2025-01-01 16:00] VITALS: BP 148/87; TEMP 98.2; O2SAT 98
[2025-01-01 20:10] VITALS: BP 103/62; TEMP 98.2; O2SAT 98
[2025-01-02 08:00] VITALS: BP 126/92; TEMP 97.9; O2SAT 95
[2025-01-02 08:09] VITALS: BP 126/92
== END 2025-01-02 11:15 | DRG 885 ==
LOC: ER 15:42 → GPS 21:48
PROVIDERS: ADMIT Psychiatry & Neurology Psychiatry; ATTEND Nurse Practitioner Acute Care
DX: F39 Unspecified mood [affective] disorder (principal); F06.71 Mild neurocognitive disorder due to known physiological condition with behavioral disturbance; F41.9 Anxiety disorder, unspecified; F29 Unspecified psychosis not due to a substance or known physiological condition; F32.A Depression, unspecified; E78.5 Hyperlipidemia, unspecified; I10 Essential (primary) hypertension; Z98.890 Other specified postprocedural states; Z79.899 Other long term (current) drug therapy; Z87.891 Personal history of nicotine dependence; Z87.81 Personal history of (healed) traumatic fracture; Z78.1 Physical restraint status; Z73.6 Limitation of activities due to disability; R79.89 Other specified abnormal findings of blood chemistry
CPT/HCPCS: 36415; 70450-TC; 71045-TC; 80048-TC; 80061-TC; 80076-TC; 80164-TC; 81001; 82140-TC; 82565-TC; 82962-TC; 84443-TC; 84484-TC; 85025-TC; 97110-TC; 97116-TC; 97530-TC; G0480; J1200; J1630; J2060; J3490; Q0177